=== PATIENT | female | born 1945 | race Caucasian/White ===

== ENCOUNTER 2021-09-28 08:41 | Day surgery (SDC) | payer MEDICARE, SELFPAY ==
[2021-09-21 10:52] VITALS: BMI 27.7
[2021-09-21 11:06] VITALS: BMI 27.7
--- NOTE | 2021-09-27 12:06 | HO.ANESPROP2 ---
Documented by User: Roz Aldana NP 09/27/21 12:07 HPI - Anesthesia Eval Consult details Narrative: 76yo F for Colonoscopy PMFSH Past Medical History Medical History Anxiety GERD (gastroesophageal reflux disease) Hiatal hernia History of electroconvulsive therapy HTN (hypertension) IBS (irritable bowel syndrome) Poor historian Rectal bleeding Surgical History Surgical History Hx of colonoscopy Hx of dilation and curettage Hx of hemorrhoidectomy Hx of unilateral oophorectomy Social History Social History Patient Tobacco Use Status: Former Tobacco user Quit Date: years ago Use of substances other than those prescribed or required for medical reasons: No Are you DNR?: No Advance Directives: No Advance Directives Information Provided: Yes Advance Directives on File: No Meds Allergies Allergy/AdvReac Type Severity Reaction Status Date / Time Codeine Allergy Unknown vomiting Uncoded 01/22/13 00:00 Demerol Allergy Unknown vomiting Uncoded 01/22/13 00:00 OPIATES Allergy Unknown Unknown Uncoded 09/21/21 11:05 percocet Allergy Unknown GI upset Uncoded 01/22/13 00:00 Home Medications Medication Instructions Recorded Confirmed Last Taken Type atenolol 25 mg tablet 12.5 mg PO DAILY 09/21/21 09/21/21 Unknown History atorvastatin 20 mg tablet 20 mg PO BEDTIME 09/21/21 09/21/21 Unknown History buspirone 30 mg tablet 30 mg PO BID 09/21/21 09/21/21 Unknown History cholecalciferol (vitamin D3) 25 25 mcg PO DAILY 09/21/21 09/21/21 Unknown History mcg (1,000 unit) capsule (Vitamin D3) dexlansoprazole 60 mg 60 mg PO DAILY 09/21/21 09/21/21 Unknown History capsule,biphase delayed release (Dexilant) docusate sodium 100 mg capsule 100 mg PO DAILY 09/21/21 09/21/21 Unknown History (Colace) duloxetine 30 mg capsule,delayed 30 mg PO BEDTIME 09/21/21 09/21/21 Unknown History release (Cymbalta) duloxetine 60 mg capsule,delayed 60 mg PO DAILY@0730 09/21/21 09/21/21 Unknown History release (Cymbalta) levothyroxine 50 mcg capsule 50 mcg PO DAILY 09/21/21 09/21/21 Unknown History mirtazapine 30 mg tablet (Remeron) 30 mg PO BEDTIME 09/21/21 09/21/21 Unknown History quetiapine 25 mg tablet (Seroquel) 25 mg PO BEDTIME 09/21/21 09/21/21 Unknown History Exam Exam Date and Time: September 27, 2021 1206 Height,Weight and Vital Signs: Height 5 ft 6 in Weight 78.018 kg Assessment and Plan Assessment Anesthesia Assessment: Chart Reviewed Documented by User: Brook Rushing MD 09/28/21 10:30 [facility] Past Medical History Medical History Anxiety GERD (gastroesophageal reflux disease) Hiatal hernia History of electroconvulsive therapy HTN (hypertension) IBS (irritable bowel syndrome) Poor historian Rectal bleeding Surgical History Surgical History Hx of colonoscopy Hx of dilation and curettage Hx of hemorrhoidectomy Hx of unilateral oophorectomy History of Problems with Anesthesia: No Social History Social History Patient Tobacco Use Status: Former Tobacco user Quit Date: years ago Use of substances other than those prescribed or required for medical reasons: No Are you DNR?: No Advance Directives: No Advance Directives Information Provided: Yes Advance Directives on File: No Meds Allergies Allergy/AdvReac Type Severity Reaction Status Date / Time Codeine Allergy Unknown vomiting Uncoded 01/22/13 00:00 Demerol Allergy Unknown vomiting Uncoded 01/22/13 00:00 OPIATES Allergy Unknown Unknown Uncoded 09/21/21 11:05 percocet Allergy Unknown GI upset Uncoded 01/22/13 00:00 Home Medications Medication Instructions Recorded Confirmed Last Taken Type atenolol 25 mg tablet 12.5 mg PO DAILY 09/21/21 09/21/21 Unknown History atorvastatin 20 mg tablet 20 mg PO BEDTIME 09/21/21 09/21/21 Unknown History buspirone 30 mg tablet 30 mg PO BID 09/21/21 09/21/21 Unknown History cholecalciferol (vitamin D3) 25 25 mcg PO DAILY 09/21/21 09/21/21 Unknown History mcg (1,000 unit) capsule (Vitamin D3) dexlansoprazole 60 mg 60 mg PO DAILY 09/21/21 09/21/21 Unknown History capsule,biphase delayed release (Dexilant) docusate sodium 100 mg capsule 100 mg PO DAILY 09/21/21 09/21/21 Unknown History (Colace) duloxetine 30 mg capsule,delayed 30 mg PO BEDTIME 09/21/21 09/21/21 Unknown History release (Cymbalta) duloxetine 60 mg capsule,delayed 60 mg PO DAILY@0730 09/21/21 09/21/21 Unknown History release (Cymbalta) levothyroxine 50 mcg capsule 50 mcg PO DAILY 09/21/21 09/21/21 Unknown History mirtazapine 30 mg tablet (Remeron) 30 mg PO BEDTIME 09/21/21 09/21/21 Unknown History quetiapine 25 mg tablet (Seroquel) 25 mg PO BEDTIME 09/21/21 09/21/21 Unknown History Exam Airway Mallampati Class: II (Edentulous upper) TM Dist: >3cm Neck ROM: Full Denture: Upper Partial: Lower Loose/Missing/Broken Teeth: Yes, Upper and Lower Heart: RRR Lungs: CTA Assessment and Plan Assessment Anesthesia Assessment: Anesthesia Plan Discussed Final Anesthetic Review History of Problems with Anesthesia: No NPO: Yes ASA Class: II Final Preanesthetic Review: Meds/Allgs Chart Reviewed, Consent Obtained/Reviewed and Anes Risks/Benef Reviewed Patient Risk: Low Procedure Risk: Low Anesthetic Plan Anesthetic Plan: MAC: Disposition: Standard PACU
[2021-09-28 09:29] VITALS: BP 166/72; PULSE 67; RESP 18; TEMP 36.1; O2SAT 97
[2021-09-28] MEDS: Lactated Ringers 1,000 ML 100 ML IVCONT (09:39)
[2021-09-28] MEDS: Sodium Phosphate,Mono-Dibasic 133 ML ENEMA PR (09:53)
[2021-09-28 11:50] VITALS: BP 110/47; PULSE 58; RESP 18; TEMP 36.4; O2SAT 100
--- NOTE | 2021-09-28 11:54 | P.BOP_ITS ---
Brief Operative Note Date of Service: 09/28/21 Pre-op diagnosis: Rectal bleeding Post-op diagnosis: other (Colon polyps) Procedure: Colonoscopy to the cecum with hot snare polypectomy x 2 and placement of a Resolution clip on the cecal polypectomy site. Surgeon: Ortiz Heath Anesthesia: MAC Was an Instructional Materials Director used for this Procedure?: No Estimated blood loss (mL): 2.0 Pathology: other (A. Cecal polyp B. Ascending colon polyp) Condition: stable Disposition: PACU
[2021-09-28 11:55] VITALS: BP 111/48; PULSE 54; RESP 18; O2SAT 100
[2021-09-28 12:00] VITALS: BP 105/53; PULSE 62; RESP 18; O2SAT 98
[2021-09-28 12:15] VITALS: BP 165/67; PULSE 59; RESP 16; TEMP 36.1; O2SAT 98
--- NOTE | 2021-09-28 13:36 | OP_ITS ---
SURGEON: Ortiz Heath MD INDICATIONS: The patient presents for evaluation of intermittent hematochezia. Full consent has been obtained from her for this, including risks of bleeding and perforation. PREOPERATIVE DIAGNOSIS: Hematochezia. POSTOPERATIVE DIAGNOSIS: PROCEDURE PERFORMED: Colonoscopy to the cecum with snare polypectomy and placement of a resolution clip on the cecal polypectomy site. ESTIMATED BLOOD LOSS: COMPLICATIONS: ANESTHESIA: Monitored anesthesia care. ASSISTANTS: SPECIMENS: POSTOPERATIVE DIAGNOSES: Hematochezia, colon polyps, diverticulosis, and internal hemorrhoids. DESCRIPTION OF PROCEDURE: The patient was placed in the left lateral decubitus position. The digital rectal exam revealed some small hemorrhoidal tissue. The Olympus video pediatric colonoscope was entered into the rectum and advanced to the cecum with the assistance of abdominal wall pressure. Once in the cecum, I did identify cecal pouch with appendiceal orifice. There was transillumination of light deep in the right lower quadrant. The entire cecum was well visualized. In the cecum, was an approximately 12 to 15 mm raised and grossly adenomatous polyp, which was removed by hot snare polypectomy in piecemeal fashion with pieces recovered by suction. Post polypectomy, there did not appear to be any residual polyp nor bleeding. A single clip was applied with good deployment and good hemostasis. The remainder of the cecum appeared normal. The scope was then slowly withdrawn assessing all mucosal surfaces carefully. Preparation was excellent. In the ascending colon, a flat approximately 6 to 8 mm polyp, which was removed by hot snare polypectomy and recovered by suction. The polypectomy site appeared clean, without any sign of residual polyp nor bleeding. I did not visualize any other polyps, colitis, nor angiodysplasia. There was a moderate amount of sigmoid diverticulosis. In the rectum, scope was retroflexed visualizing internal hemorrhoids, but no other pathology. The rectal mucosa appeared normal. Scope was straightened out and withdrawn from the patient. She tolerated the procedure well and was returned to recovery area in stable condition. IMPRESSION: 1. Colon polyps, status post hot snare polypectomy and placement of a single resolution clip on the cecal polypectomy site. 2. Diverticulosis. 3. Internal hemorrhoids. PLAN: The results of the pathology will be checked. Given these findings and her age, I do not think she will need any further screening colonoscopies. She will otherwise see me again on a p.r.n. basis. She was advised not to use any aspirin nor NSAIDs for 1 week. This has been discussed with her . MD ROSANA Taveras/PAMELA / [phone]
== END 2021-09-28 12:59 | disposition home or self-care (01) ==
PROVIDERS: PCP Internal Medicine; Visit Provider Internal Medicine
PROC: 0DJD8ZZ Inspection of Lower Intestinal Tract, Via Natural or Artificial Opening Endoscopic (ICD-10-PCS; CPT 45378; principal; 2021-09-28 10:10)
DX: K62.5 Hemorrhage of anus and rectum (principal); D12.0 Benign neoplasm of cecum; D12.2 Benign neoplasm of ascending colon; K57.30 Diverticulosis of large intestine without perforation or abscess without bleeding; K64.8 Other hemorrhoids; K58.9 Irritable bowel syndrome, unspecified; K21.9 Gastro-esophageal reflux disease without esophagitis; I10 Essential (primary) hypertension; F32.9 Major depressive disorder, single episode, unspecified; Z79.899 Other long term (current) drug therapy
CPT/HCPCS: 45385; 88305

== ENCOUNTER 2023-07-18 14:31 | Outpatient (AMB) | payer MEDICARE, SELFPAY ==
--- NOTE | 2023-07-18 14:45 | A.OFFVIS_ITS ---
Intake Vital Signs 07/18/23 14:50 Weight 165 lb Intake Visit Reasons: Hemorrhoids Intake Note: This patient presents for an assessment for hemorrhoids. Patient c/o; reports pressure and heaviness, I feel like there is a rock , Hx of IBS, reports using Metamucil because she was experiencing fecal incontinence. Transition Specialist Required: No Accompanied by: Daughter Allergies Sulfa (Sulfonamide Antibiotics) Allergy (Verified 07/18/23 14:51) Unknown sulfamethoxazole [From Bactrim] Allergy (Verified 07/18/23 14:51) Unknown trimethoprim [From Bactrim] Allergy (Verified 07/18/23 14:51) Unknown Codeine Allergy (Unknown, Uncoded 01/22/13 00:00) vomiting Demerol Allergy (Unknown, Uncoded 01/22/13 00:00) vomiting OPIATES Allergy (Unknown, Uncoded 09/21/21 11:05) Unknown percocet Allergy (Unknown, Uncoded 01/22/13 00:00) GI upset Medication List - Last Reviewed 07/18/23 by RAUL Marie atenolol 12.5 mg PO DAILY atorvastatin 20 mg PO BEDTIME buspirone 30 mg PO BID cholecalciferol (vitamin D3) (Vitamin D3) 25 mcg PO DAILY dexlansoprazole (Dexilant) 60 mg PO DAILY docusate sodium (Colace) 100 mg PO DAILY duloxetine (Cymbalta) 60 mg PO DAILY@0730 duloxetine (Cymbalta) 30 mg PO BEDTIME levothyroxine 50 mcg PO DAILY losartan 50 mg PO DAILY mirtazapine (Remeron) 30 mg PO BEDTIME psyllium husk (Metamucil) 1 tbsp PO DAILY quetiapine (Seroquel) 25 mg PO BEDTIME HPI Hemorrhoids HPI Details [age] year old female referred for hemorrhoids. She actually describes a sensation of having a ?rock? in her anus. She says that she has had this for about 6 months now. She denies significant pain. She says that she has no bleeding. She just states that was of this discomfort of this sensation, she is unable to stay in a standing position or walk for long periods of time as this gets worse She denies constipation although she does have a history of IBS in the past. She her last colonoscopy was in 2020 and at that time, she was noted to have cecal polyp and internal hemorrhoids. She really does not feel an actual lump outside her anus. [facility] Medical History (Updated 07/18/23 @ 15:29 by Jimbo Mayo MD) Anxiety GERD (gastroesophageal reflux disease) Hiatal hernia History of electroconvulsive therapy HTN (hypertension) IBS (irritable bowel syndrome) Internal hemorrhoids with complication Poor historian Rectal bleeding Surgical History Hx of colonoscopy Hx of dilation and curettage Hx of hemorrhoidectomy Hx of unilateral oophorectomy Social History Patient Tobacco Use Status: Former Tobacco user Quit Date: years ago Review of Systems Const Denies chills and Denies fever(s) Card Denies chest pain, Denies dyspnea and Denies dyspnea on exertion Resp Denies cough, Denies dyspnea and Denies dyspnea on exertion GI Denies hematochezia and Denies change in bowel habits Denies hematuria Musc Denies back pain and Denies limited range of motion Neuro Denies focal weakness and Denies convulsions Psych Denies depression and Denies mood swings Physical Exam Const General: comfortable and no acute distress Orientation/consciousness: patient oriented x3 Neck Neck: Yes no lymphadenopathy Resp Auscultation: clear to auscultation bilaterally Cardio Rhythm: regular rhythm GI Other: Small external hemorrhoids on rectal exam, anoscopy as described Palpation (GI): Soft to palpation, nontender and no guarding Neuro General: patient oriented x3 Office Procedures Anoscopy She was in elizabeth-knife position. The anoscope was gently inserted. Full examination of the anal canal was done. She did have 1 relatively large internal hemorrhoid on the left side. She had other smaller hemorrhoidal columns internally. There were no other lesions. There was no induration on digital exam. There were no ulcers are no fissures. There was no bleeding. [id number] Assessment & Plan Assessment & Plan (1) Internal hemorrhoids with complication: Code(s): K64.8 - Other hemorrhoids Plan: She has had this sensation of a ?rock? inside her anus for about 6 months now. Anoscopic exam reveals a large internal hemorrhoid on the left side I explained to her that we can do rubber band ligation to this internal hemorrhoid and hopefully this will help with her discomfort. I explained to her the technique of this procedure. She understands and we will schedule her for a visit to do rubber band ligation here in the office In the meantime, she states that been using hemorrhoids that seemed to help with her symptoms so I will refill her Anucort. Her daughter was with her during the visit. Medications: New hydrocortisone acetate (Anucort-HC) 25 mg NV BID 24 ea 0RF Coding Level of Care Code New Pt Level 3 (59824) Diagnoses Internal hemorrhoids with complication K64.8 CPT Codes Details - CPT: 31710-[id number] ([id number])
== END 2023-07-18 15:19 | disposition home or self-care (01) ==
PROVIDERS: PCP Internal Medicine; Referring Provider Internal Medicine; Visit Provider Surgery
DX: K64.8 Other hemorrhoids (principal)
CPT/HCPCS: 46600; 99203

== ENCOUNTER → 2023-07-18 14:31 | Outpatient (BNVA) | payer MEDICARE, SELFPAY | PROVIDERS: PCP Internal Medicine; Referring Provider Internal Medicine; Visit Provider Surgery | DX: K64.8 Other hemorrhoids (principal) | CPT/HCPCS: 46600; 99202 ==

== ENCOUNTER 2023-08-01 13:19 | Outpatient (AMB) | payer MEDICARE, SELFPAY ==
--- NOTE | 2023-08-01 13:20 | A.OFFVIS_ITS ---
Intake Vital Signs 08/01/23 13:28 Weight 164 lb BP 139/63 Blood Pressure Location Rt brachial Position Sitting Pulse 84 Intake Visit Reasons: Rubberband ligation Intake Note: This patient presents for in-office procedure for rubberband ligation. Patient c/o; reports no changes. Drawing In Machine Tender Helper Required: No Accompanied by: Daughter Allergies Sulfa (Sulfonamide Antibiotics) Allergy (Verified 08/01/23 13:29) Unknown sulfamethoxazole [From Bactrim] Allergy (Verified 08/01/23 13:29) Unknown trimethoprim [From Bactrim] Allergy (Verified 08/01/23 13:29) Unknown Codeine Allergy (Unknown, Uncoded 08/01/23 13:29) vomiting Demerol Allergy (Unknown, Uncoded 08/01/23 13:29) vomiting OPIATES Allergy (Unknown, Uncoded 08/01/23 13:29) Unknown percocet Allergy (Unknown, Uncoded 08/01/23 13:29) GI upset HPI Rubberband ligation HPI Details She is here for rubber band ligation. [facility] Medical History Internal hemorrhoids with complication Poor historian Rectal bleeding HTN (hypertension) Hiatal hernia GERD (gastroesophageal reflux disease) Anxiety IBS (irritable bowel syndrome) History of electroconvulsive therapy Surgical History History of surgical procedure (~08/01/23) Hx of colonoscopy Hx of unilateral oophorectomy Hx of dilation and curettage Hx of hemorrhoidectomy Social History Patient Tobacco Use Status: Former Tobacco user Quit Date: years ago Physical Exam Vital Signs: Last Vital Signs Pulse 84 08/01/23 13:28 BP 139/63 08/01/23 13:28 Office Procedures Hemorrhoid She was in elizabeth-knife position. The anoscope was gently inserted. There was this internal hemorrhoid on the left side posteriorly. This was grasped with the hemorrhoidal grasper. The rubber band ligated her was applied at the base of the internal hemorrhoidal column. She tolerated procedure well. There were no immediate complications I will see her again in the office in 2 weeks. Assessment & Plan Assessment & Plan (1) Internal hemorrhoids with complication: Code(s): K64.8 - Other hemorrhoids Plan: She tolerated rubber band ligation well. I will see her again in the office in about 2 weeks. Coding Level of Care Code Procedure Only Diagnoses Internal hemorrhoids with complication K64.8
[2023-08-01 13:28] VITALS: BP 139/63; PULSE 84
== END 2023-08-01 13:41 | disposition home or self-care (01) ==
PROVIDERS: PCP Internal Medicine; Visit Provider Surgery
DX: K64.8 Other hemorrhoids (principal)
CPT/HCPCS: 46221

== ENCOUNTER → 2023-08-01 13:19 | Outpatient (BNVA) | payer MEDICARE, SELFPAY | PROVIDERS: PCP Internal Medicine; Visit Provider Surgery | DX: K64.8 Other hemorrhoids (principal) | CPT/HCPCS: 46221 ==

== ENCOUNTER 2023-08-20 12:52 | Outpatient (AMB) | payer MEDICARE, SELFPAY ==
--- NOTE | 2023-08-20 12:53 | MHC.OFFVIS ---
Intake Vital Signs 08/20/23 13:00 Weight 166 lb BP 134/60 Blood Pressure Location Rt brachial Position Sitting Pulse 88 Intake Visit Reasons: s/p rubberband ligation, follow up Intake Note: This patient presents for a follow-up assessment status post hemorrhoidal banding. Patient's daughter c/o; it helped but not enough . Tape Transferrer Required: No Accompanied by: Daughter Allergies Sulfa (Sulfonamide Antibiotics) Allergy (Verified 08/20/23 12:54) Unknown sulfamethoxazole [From Bactrim] Allergy (Verified 08/20/23 12:54) Unknown trimethoprim [From Bactrim] Allergy (Verified 08/20/23 12:54) Unknown Codeine Allergy (Unknown, Uncoded 08/20/23 12:54) vomiting Demerol Allergy (Unknown, Uncoded 08/20/23 12:54) vomiting OPIATES Allergy (Unknown, Uncoded 08/20/23 12:54) Unknown percocet Allergy (Unknown, Uncoded 08/20/23 12:54) GI upset HPI s/p rubberband ligation, follow up HPI Details She had undergone rubber band ligation of an internal hemorrhoid in the office about 3 weeks ago. She tolerated procedure well. She says she still has this sensation of being at ?lump? in her anus. She says that this seems to be worse when she has been standing for prolonged period of time. She therefore says she had not gone to [facility] recently because of this. She denies seeing blood per rectum. [facility] Medical History (Updated 08/20/23 @ 13:18 by Jimbo Mayo MD) Internal and external hemorrhoids without complication Internal hemorrhoids with complication Poor historian Rectal bleeding HTN (hypertension) Hiatal hernia GERD (gastroesophageal reflux disease) Anxiety IBS (irritable bowel syndrome) History of electroconvulsive therapy Surgical History History of surgical procedure (~08/01/23) Hx of colonoscopy Hx of unilateral oophorectomy Hx of dilation and curettage Hx of hemorrhoidectomy Social History Patient Tobacco Use Status: Former Tobacco user Quit Date: years ago Review of Systems Const Denies chills and Denies fever(s) Card Denies chest pain, Denies dyspnea and Denies dyspnea on exertion Resp Denies cough, Denies dyspnea and Denies dyspnea on exertion GI Denies hematochezia and Denies change in bowel habits Denies hematuria Musc Denies back pain and Denies limited range of motion Neuro Denies focal weakness and Denies convulsions Psych Denies depression and Denies mood swings Physical Exam Vital Signs: Last Vital Signs Pulse 88 08/20/23 13:00 BP 134/60 08/20/23 13:00 GI Other: Rectal exam shows some irritation on the perianal skin Office Procedures Anoscopy She was placed in elizabeth-knife position. The anoscope was gently inserted. A full examination of the entire anal canal was done. There was note of external hemorrhoidal column on the left anterior. There was a small internal hemorrhoidal column on the right. There were no other lesions. There was no fissure or induration. [id number] Assessment & Plan Assessment & Plan (1) Internal and external hemorrhoids without complication: Code(s): K64.4 - Residual hemorrhoidal skin tags; K64.8 - Other hemorrhoids Plan: Current exam does show an external hemorrhoidal column on the left side although this is not bulky. She has smaller internal hemorrhoids as well She continues to have some sensation of a lump inside her anus even after rubber banding of 2 internal hemorrhoids. According to her daughter, she has had hemorrhoid issues for about over 50 years now. I do not see any large hemorrhoidal column I will start her on steroid suppositories again. I will prescribe her Calmoseptine. I will see her again in the office in about 3 weeks to see how she is doing. There is a chance that we may repeat rubber banding of some internal hemorrhoids. Coding Level of Care Code Est Pt Level 3 (42789) Diagnoses Internal and external hemorrhoids without complication K64.4; K64.8 CPT Codes Details - CPT: 59697-[id number] ([id number])
[2023-08-20 13:00] VITALS: BP 134/60; PULSE 88
== END 2023-08-20 13:21 | disposition home or self-care (01) ==
PROVIDERS: PCP Internal Medicine; Visit Provider Surgery
DX: K64.4 Residual hemorrhoidal skin tags (principal); K64.8 Other hemorrhoids
CPT/HCPCS: 46600; 99213

== ENCOUNTER → 2023-08-20 12:52 | Outpatient (BNVA) | payer MEDICARE, SELFPAY | PROVIDERS: PCP Internal Medicine; Visit Provider Surgery | DX: K64.4 Residual hemorrhoidal skin tags (principal); K64.8 Other hemorrhoids | CPT/HCPCS: 46600; 99212 ==

== ENCOUNTER 2023-09-10 13:37 | Outpatient (REF) | payer MEDICARE, SELFPAY ==
[2023-09-10 15:09] LABS: Blood Urea Nitrogen 16 mg/dL (9-16); Estimated Glomerular Filt Rate > 60
== END 2023-09-10 13:38 | disposition home or self-care (01) ==
LOC: HO.LAB 13:37
PROVIDERS: PCP Internal Medicine; Visit Provider Surgery
DX: K64.8 Other hemorrhoids (principal)
CPT/HCPCS: 36415; 46600; 82565; 84520; 99212

== ENCOUNTER 2023-09-10 13:37 | Outpatient (AMB) | payer MEDICARE, SELFPAY ==
--- NOTE | 2023-09-10 13:40 | A.OFFVIS_ITS ---
Intake Vital Signs 09/10/23 13:47 Weight 171 lb BP 130/60 Blood Pressure Location Rt brachial Position Sitting Pulse 92 Intake Visit Reasons: Internal and external hemorrhoids, 3 wk follow up Intake Note: This patient presents for a three week follow-up assessment for internal and external hemorrhoids. Patient c/o; reports no changes. Dental Biller Required: No Accompanied by: Daughter Allergies Sulfa (Sulfonamide Antibiotics) Allergy (Verified 09/10/23 13:47) Unknown sulfamethoxazole [From Bactrim] Allergy (Verified 09/10/23 13:47) Unknown trimethoprim [From Bactrim] Allergy (Verified 09/10/23 13:47) Unknown Codeine Allergy (Unknown, Uncoded 09/10/23 13:47) vomiting Demerol Allergy (Unknown, Uncoded 09/10/23 13:47) vomiting OPIATES Allergy (Unknown, Uncoded 09/10/23 13:47) Unknown percocet Allergy (Unknown, Uncoded 09/10/23 13:47) GI upset HPI Internal and external hemorrhoids, 3 wk follow up HPI Details She is here for follow-up for her hemorrhoid issues. She had undergone rubber band ligation recently. She continued to have some sensation swollen hemorrhoids within anal canal so I started on steroid suppositories. She does state that the seemed to help a lot. She however says that she wakes up with us feeling that she has a ?rock? in her anus. She says that because of this, she is hesitant about leaving the house. She denies bleeding per rectum. [facility] Medical History (Updated 09/10/23 @ 14:06 by Jimbo Mayo MD) Mass of anus Internal and external hemorrhoids without complication Internal hemorrhoids with complication Poor historian Rectal bleeding HTN (hypertension) Hiatal hernia GERD (gastroesophageal reflux disease) Anxiety IBS (irritable bowel syndrome) History of electroconvulsive therapy Surgical History History of surgical procedure (~08/01/23) Hx of colonoscopy Hx of unilateral oophorectomy Hx of dilation and curettage Hx of hemorrhoidectomy Social History Patient Tobacco Use Status: Former Tobacco user Quit Date: years ago Review of Systems Const Denies chills and Denies fever(s) Card Denies chest pain Resp Denies cough GI Denies abdominal pain Denies difficulty voiding Physical Exam Const General: comfortable and no acute distress Resp Effort & Inspection: normal respiratory effort Cardio Rate: regular rate GI Other: Rectal exam shows non bulky external hemorrhoids, anoscopy done Palpation (GI): Soft to palpation, not firm and nontender Office Procedures Anoscopy She was in elizabeth-knife position. The anoscope was gently inserted. A full examination of the anal canal was done. She had small internal hemorrhoids do not appear to be prolapsing. There were no lesions. There was no induration on digital exam [id number] Assessment & Plan Assessment & Plan (1) Mass of anus: Code(s): K62.89 - Other specified diseases of anus and rectum Plan: She does state that she feels much better with the steroid suppositories. However she continues to have this sensation of a ?rock? in her anus in the morning. Current exam does not reveal any mass in the anus itself. I am going to order for a pelvic CT scan to rule out any extraluminal mass in the area. She seems to be bothered by this ?rock?. I will see her in the office thereafter. (2) Internal hemorrhoids with complication: Code(s): K64.8 - Other hemorrhoids Orders: Orders Creatinine Today K62.89 - Other specified diseases of anus and rectum CT pelvis w IV con Today K62.89 - Other specified diseases of anus and rectum Blood Urea Nitrogen Today K62.89 - Other specified diseases of anus and rectum Coding Level of Care Code Est Pt Level 3 (10789) Diagnoses Mass of anus K62.89 Internal hemorrhoids with complication K64.8 CPT Codes Details - CPT: 77589-[id number] ([id number])
[2023-09-10 13:47] VITALS: BP 130/60; PULSE 92
== END 2023-09-10 14:16 | disposition home or self-care (01) ==
PROVIDERS: PCP Internal Medicine; Visit Provider Surgery
DX: K62.89 Other specified diseases of anus and rectum (principal); K64.8 Other hemorrhoids
CPT/HCPCS: 46600; 99213

== ENCOUNTER 2023-10-25 10:24 | Outpatient (REF) | payer MEDICARE, SELFPAY ==
--- NOTE | ~2023-10-25 | CT_ITS ---
EXAMINATION: CT PELVIS WITH CONTRAST CLINICAL INFORMATION: 50 mL of anus and rectum COMPARISON: None available. TECHNIQUE: Helical scanning was performed with submillimeter collimation through the pelvis with the use of oral contrast and during bolus intravenous injection of 85 mL of Omnipaque 350 intravenous contrast. Sagittal and coronal multiplanar 2-D reconstructions were obtained. This CT examination was performed using dose optimization techniques as appropriate, variously including the following: *Automated exposure control *Adjustment of mA and/or kV according to patient size (this includes techniques or standardized protocols for targeted exams where dose is matched to indication/reason for exam; i.e. extremities or head) *Use of iterative reconstruction technique DLP: 696.43 mGy-cm FINDINGS: URINARY BLADDER: Urinary bladder fills normally with urine. BOWELS: There is no abnormal dilatation of large and small bowel loops. Normal appendix is seen projecting posterior to the cecum. GENITAL ORGANS: No adnexal mass lesion could be seen. The uterus is retroverted, containing at least one enhancing exophytic mass lesion protruding from left lateral uterine body, measuring 5.1 cm in AP diameter, 4.3 cm in width, 4.0 cm in vertical height. LYMPH NODES: No abnormally enlarged iliac or inguinal lymph nodes are seen. PERITONEUM: No inflammatory changes, ascites or free peritoneal air are found in the pelvis. Small umbilical hernia containing mesenteric fat is seen. BONES: Multiple large subcortical cystic lesions are seen in the right femoral head. Prominent right femoral head ring osteophyte formation is seen. No fracture or dislocation. No focal bone lesion diagnostic of metastatic disease could be seen in the pelvis. CT/CT pelvis w IV con IMPRESSION: 1. There is at least one exophytic enhancing mass lesion protruding from the left lateral uterine body. 2. Small umbilical hernia containing mesenteric fat. 3. Prominent right hip osteoarthritis is present.
[2023-10-25] MEDS: iohexoL 350 MG/ML 100 ML INFUS..BTL IV (11:25)
[2023-10-29 09:05] LABS: Creatinine POC 0.5 mg/dL (0.5-1.4); GFR POC > 60
== END 2023-10-25 10:25 | disposition home or self-care (01) ==
LOC: HO.CT 10:24
PROVIDERS: PCP Internal Medicine; Visit Provider Surgery
DX: K62.89 Other specified diseases of anus and rectum (principal)
CPT/HCPCS: 72193; 82565; Q9967

== ENCOUNTER 2023-11-05 11:22 | Outpatient (AMB) | payer MEDICARE, SELFPAY ==
--- NOTE | 2023-11-05 11:23 | A.OFFVIS_ITS ---
Intake Vital Signs 11/05/23 11:29 Weight 177 lb Intake Visit Reasons: Ct-Scan follow-up Intake Note: This patient presents for an assessment for an umbilical hernia. Patient c/o; reports no changes. 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 Accompanied by: Self / Same As Patient Allergies Sulfa (Sulfonamide Antibiotics) Allergy (Verified 11/05/23 11:29) Unknown sulfamethoxazole [From Bactrim] Allergy (Verified 11/05/23 11:29) Unknown trimethoprim [From Bactrim] Allergy (Verified 11/05/23 11:29) Unknown Codeine Allergy (Unknown, Uncoded 11/05/23 11:29) vomiting Demerol Allergy (Unknown, Uncoded 11/05/23 11:29) vomiting OPIATES Allergy (Unknown, Uncoded 11/05/23 11:29) Unknown percocet Allergy (Unknown, Uncoded 11/05/23 11:29) GI upset HPI Ct-Scan follow-up HPI Details I had sent her for a CT scan of the pelvis in view of what she described as discomfort around her rectum. She had described this as like a rock? near her anus. I had done anoscopy on her as well as digital exams and this did not reveal any mass around her anus or rectum. Interestingly, this sensation seemed to have resolved. She denies any problems with bowel movements. She denies any abdominal pain [facility] Medical History Uterine mass Mass of anus Internal and external hemorrhoids without complication Internal hemorrhoids with complication Poor historian Rectal bleeding HTN (hypertension) Hiatal hernia GERD (gastroesophageal reflux disease) Anxiety IBS (irritable bowel syndrome) History of electroconvulsive therapy Surgical History History of surgical procedure (~08/01/23) Hx of colonoscopy Hx of unilateral oophorectomy Hx of dilation and curettage Hx of hemorrhoidectomy Social History Patient Tobacco Use Status: Former Tobacco user Quit Date: years ago Review of Systems Const Denies chills and Denies fever(s) Card Denies chest pain, Denies dyspnea and Denies dyspnea on exertion Resp Denies cough, Denies dyspnea and Denies dyspnea on exertion GI Denies hematochezia and Denies change in bowel habits Denies hematuria Musc Denies back pain and Denies limited range of motion Neuro Denies focal weakness and Denies convulsions Psych Denies depression and Denies mood swings Physical Exam Const General: comfortable and no acute distress Resp Effort & Inspection: normal respiratory effort GI Palpation (GI): Soft to palpation, not firm and nontender Assessment & Plan Assessment & Plan (1) Mass of anus: Code(s): K62.89 - Other specified diseases of anus and rectum Plan: Aside from her hemorrhoids, I did not feel any mass around her anus. I had sent her for CT scan because of her sensation of a ?rock? in her anus. This did not reveal anything around the anus or rectum. There was note of a 5.1 cm mass uterus did is likely a fibroid. I am going to send her for referral to the Gyne service She can otherwise follow up with us on a p.r.n. basis. She is comfortable with the plan. She had a small fat containing umbilical hernia which is asymptomatic so I instructed her to monitor this closely. 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
== END 2023-11-05 11:42 | disposition home or self-care (01) ==
PROVIDERS: PCP Internal Medicine; Visit Provider Surgery
DX: K62.89 Other specified diseases of anus and rectum (principal); N85.8 Other specified noninflammatory disorders of uterus
CPT/HCPCS: 99213

== ENCOUNTER → 2023-11-05 11:22 | Outpatient (BNVA) | payer MEDICARE, SELFPAY | PROVIDERS: PCP Internal Medicine; Visit Provider Surgery | DX: K62.89 Other specified diseases of anus and rectum (principal); N85.8 Other specified noninflammatory disorders of uterus | CPT/HCPCS: 99212 ==

== ENCOUNTER 2024-01-21 09:52 | Outpatient (AMB) | payer MEDICARE, SELFPAY ==
[2024-01-21 10:33] VITALS: BP 142/72; BMI 29.2
--- NOTE | 2024-01-21 10:33 | A.OFFVIS_ITS ---
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 Semiautomatic Present (Aidyn) Accompanied by: Child No Financial Resp Allergies Sulfa (Sulfonamide Antibiotics) Allergy (Verified 01/21/24 10:35) Unknown sulfamethoxazole [From Bactrim] Allergy (Verified 01/21/24 10:35) Unknown trimethoprim [From Bactrim] Allergy (Verified 01/21/24 10:35) Unknown Codeine Allergy (Unknown, Uncoded 01/21/24 10:35) vomiting Demerol Allergy (Unknown, Uncoded 01/21/24 10:35) vomiting OPIATES Allergy (Unknown, Uncoded 01/21/24 10:35) Unknown percocet Allergy (Unknown, Uncoded 01/21/24 10:35) GI upset Is last menstrual period known: No Post menopausal: Yes Patient : No HPI HPI Comments History of Present Illness Details Presenting referred from Dr. Mayo . The patient has been complaining over the last 6 months of rectal pressure, no vaginal bleeding, no pelvic pressure or any other concerns. CT scan done in 11/10, pelvic portion showed the following: GENITAL ORGANS: No adnexal mass lesion could be seen. The uterus is retroverted, containing at least one enhancing exophytic mass lesion protruding from left lateral uterine body, measuring 5.1 cm in AP diameter, 4.3 cm in width, 4.0 cm in vertical height. Review of the patient's record showed an ultrasound in November of 2002 showing a uterine myoma measuring 7.3 x 6.7 x 5.1 and a pelvic MRI in showed a uterine myoma measuring 5.1 x 5.3 x 4.5 cm [facility] Medical History Uterine mass Mass of anus Internal and external hemorrhoids without complication Internal hemorrhoids with complication Poor historian Rectal bleeding HTN (hypertension) Hiatal hernia GERD (gastroesophageal reflux disease) Anxiety IBS (irritable bowel syndrome) History of electroconvulsive therapy Surgical History History of surgical procedure (~08/01/23) Hx of colonoscopy Hx of unilateral oophorectomy Hx of dilation and curettage Hx of hemorrhoidectomy Social History Patient Tobacco Use Status: Former Tobacco user Quit Date: years ago Patient : No Female Reproductive History Menstrual control method: none Total pregnancies: 3 Full term: 3 Number of Living Children: 3 Date of last pap smear: 08/04/11 (negative) History of abnormal pap smear: No Date of Mammogram: 08/05/13 Review of Systems Const All systems reviewed & are unremarkable except as noted in HPI and below Physical Exam Vital Signs: Last Vital Signs BP 142/72 H 01/21/24 10:33 BMI result Body Mass Index 29.2 General: Yes no CVA tenderness External Female Exam: normal external appearance and normal appearance of the urethra Speculum Exam - Vagina: normal appearance of the vagina, normal palpation, no lesions and no masses Speculum Exam - Cervix: normal appearance of the cervix, normal palpation, no lesions, no masses and nontender Bimanual exam- vagina & uterus: normal bimanual exam, normal palpation, uterine size normal, normal palpation, uterine shape normal, No Cervical tenderness pr esent and non-tender Bimanual Exam- Adnexa, other: normal adnexae Back/Spine/Pelvis Back: no CVA tenderness Assessment & Plan Assessment & Plan (1) Uterine mass: Code(s): N85.8 - Other specified noninflammatory disorders of uterus Plan: Discussed with the patient the finding on CT scan, differential diagnosis includes myomas or other possible causes. Will order MRI of the pelvis. Instructions given the patient to schedule an MRI follow-up appointment. All questions answered, the patient verbalized understanding Orders: Orders MR pelvis wo/w con Today N85.8 - Other specified noninflammatory disorders of uterus Coding Level of Care Code New Pt Level 3 (33318) Diagnoses Uterine mass N85.8
== END 2024-01-21 11:51 | disposition home or self-care (01) ==
PROVIDERS: PCP Internal Medicine; Visit Provider Obstetrics & Gynecology
DX: N85.8 Other specified noninflammatory disorders of uterus (principal)
CPT/HCPCS: 99203

== ENCOUNTER → 2024-01-21 09:52 | Outpatient (BNVA) | payer MEDICARE, SELFPAY | PROVIDERS: PCP Internal Medicine; Visit Provider Obstetrics & Gynecology | DX: N85.8 Other specified noninflammatory disorders of uterus (principal) | CPT/HCPCS: 99202 ==

== ENCOUNTER 2024-02-16 10:03 | Inpatient (IN) | payer MEDICARE, SELFPAY ==
[2024-02-16] VITALS (13 sets, daily range): BP systolic 108–220; BP diastolic 45–120; PULSE 71–89; RESP 14–20; TEMP 35.9–36.7; O2SAT 95–99; BMI 35.4
--- NOTE | ~2024-02-16 | CT_ITS ---
EXAMINATION: CTA OF THE HEAD AND NECK CLINICAL INFORMATION: Right-sided deficits. COMPARISON: Head CT from 02/16/2024. TECHNIQUE: Test bolus sequences followed by intravenous administration 70 mL of Omnipaque 350. Helical imaging was performed in the axial plane from the mediastinum to the skull vertex. Delayed postcontrast imaging of the head was also performed. The data was processed at the space technologist's workstation for generation of MIP sequences. Three-dimensional volume rendered reformatted images were also generated at an offline 3-D workstation. Stenoses are assessed in accordance with NASCET criteria unless otherwise indicated. This CT examination was performed using dose optimization techniques as appropriate, variously including the following: *Automated exposure control *Adjustment of mA and/or kV according to patient size (this includes techniques or standardized protocols for targeted exams where dose is matched to indication/reason for exam; i.e. extremities or head) *Use of iterative reconstruction technique DLP: 1485 mGy-cm. FINDINGS: CTA neck: Mild atherosclerotic wall calcifications visible at the aortic arch and origins of the left common carotid artery and brachiocephalic trunk without stenosis. There is significant wall calcification at the origin of the left subclavian artery resulting in a severe stenosis. There is a urqycacl-hr-qqmukt stenosis at the origin of the right subclavian artery as well with wall calcifications. Mild wall calcifications visible at the left carotid bifurcation without stenosis. A beaded appearance is evident in the upper cervical left internal carotid artery without a focal dissection or significant stenosis. The right common carotid artery is normal in caliber. At the right carotid bifurcation, there is a 60% stenosis at the origin of the right internal carotid artery with moderate wall calcifications. Distally, there is a beaded appearance of the upper cervical right internal carotid artery without significant stenosis. There is an incidental fenestration of the right vertebral artery at the C2 level. The remainder of the vertebral arteries bilaterally are normal in appearance. The thyroid gland is atrophic and mildly heterogeneous in attenuation. Multilevel facet arthropathy present in the cervical spine with foraminal encroachment. The imaged portions of the lungs are clear. CTA head: The intradural vertebral arteries and basilar artery are normal. The posterior cerebral arteries are widely patent. The internal carotid arteries are of normal caliber. There is a 3 x 3 mm PCOM aneurysm protruding posterolaterally off the supraclinoid left internal carotid artery, incorporating the origin of the posterior communicating artery segment. The JHONATHAN and MCA vascular complexes bilaterally are normal. There is no abnormal parenchymal or leptomeningeal enhancement. The venous sinuses opacify normally. CT/CT angio head neck stroke IMPRESSION: Beaded appearance of the upper cervical internal carotid arteries without significant stenosis or visible dissection. Findings can be seen in the setting of fibromuscular dysplasia. Approximate 60% stenosis at the origin of the right internal carotid artery due to moderate atherosclerotic wall calcifications. Severe stenosis at the origin of the left subclavian artery due to atheromatous disease and [id number] stenosis at the origin of the right subclavian artery with surrounding wall calcifications. Suspected focal fenestration in the upper cervical right vertebral artery at the C2 level. Approximate 3 x 3 mm PCOM aneurysm protruding posterolaterally off the supraclinoid left internal carotid artery. Imaging findings reported to ROJELIO Molina at 11:10 AM on 02/16/2024.
--- NOTE | ~2024-02-16 | CT_ITS ---
EXAMINATION: CT HEAD WITHOUT CONTRAST (STROKE PROTOCOL) CLINICAL INFORMATION: Stroke protocol. Right-sided deficits. COMPARISON: None available TECHNIQUE: Contiguous axial imaging was performed from the skull base to vertex without intravenous administration of contrast. This CT examination was performed using dose optimization techniques as appropriate, variously including the following: *Automated exposure control *Adjustment of mA and/or kV according to patient size (this includes techniques or standardized protocols for targeted exams where dose is matched to indication/reason for exam; i.e. extremities or head) *Use of iterative reconstruction technique DLP: 653 mGy-cm FINDINGS: There is no evidence of acute intracranial hemorrhage or territorial infarction. No abnormal mass effect or midline shift is appreciated. Russo-white differentiation is well preserved. No extra-axial fluid collections. The ventricular system and cortical sulci are prominent, consistent with age-appropriate volume loss. There are areas of low density in the periventricular and subcortical white matter, most consistent with sequelae of microvascular ischemic change. Soft tissues and osseous structures are unremarkable. There are calcifications of the cavernous internal carotid arteries. The visualized paranasal sinuses and mastoid air cells are well aerated. CT/CT head for stroke IMPRESSION: No acute intracranial pathology. This critical result was relayed to Dr. Sierra by DWAYNE Walters at 10:26 AM. It was ascertained that the content and urgency of the report was understood at the time of direct communication.
--- NOTE | ~2024-02-16 | MR_ITS ---
EXAMINATION: MR BRAIN WITHOUT CONTRAST CLINICAL INFORMATION: Question aphasia. COMPARISON: CT on 01/20/2024. TECHNIQUE: Multiplanar, multisequence imaging of the brain was performed without contrast. FINDINGS: No diffusion abnormalities are identified to suggest an acute infarct. There is generalized brain parenchymal volume loss with commensurate mild to moderate ex vacuo dilatation of the ventricles. No mass effect or midline shift is seen. There are mild scattered white matter signal changes which may be due to chronic microangiopathy. Moderate T2 hyperintense signal changes are visible in the dario. No extra-axial fluid collections are seen. The cerebellum is normal. The gradient refocused acquisition demonstrates no pathologic magnetic susceptibility artifact to indicate underlying acute or chronic blood products. The craniovertebral junction, marrow signal, and remaining midline structures are normal. The major intracranial flow voids at the level of the [place] are preserved. A tortuous right vertebral body distorts the pontomedullary junction. The dural venous sinus flow voids are maintained. The mastoid air cells and paranasal sinuses are well aerated. MR/MR head/brain wo con IMPRESSION: No acute intracranial process. Mild chronic microangiopathy in the cerebral white matter with generalized brain parenchymal volume loss. Moderate striated signal abnormality in the central dario which may be due to chronic small vessel ischemic disease. Osmotic demyelination could have a similar imaging appearance; clinical correlation is recommended.
--- NOTE | 2024-02-16 10:07 | ECG_ITS ---
Test Reason : STROKE Blood Pressure : / mmHG Vent. Rate : 089 BPM Atrial Rate : 089 BPM P-R Int : 206 ms QRS Dur : 084 ms QT Int : 340 ms P-R-T Axes : 044 -03 061 degrees QTc Int : 413 ms Normal sinus rhythm Nonspecific ST abnormality Abnormal ECG No previous ECGs available Referred By: Brook Monterroso Electronically Signed By:Rene Reynaga
--- NOTE | 2024-02-16 10:08 | ED_ITS ---
HPI - Neuro Symptoms/Deficit General Chief Complaint: Neuro Symptoms/Deficit Stated Complaint: NOT RESPONDING VERBALLY CONFUSED Time Seen by Provider: 02/16/24 10:16 Source: family and EMS Mode of arrival: EMS History of Present Illness HPI Narrative: 78-year-old female arrives via EMS, daughter came to the house and found her mother with minimal response and has not seen her since Sunday, who was at the house but has dementia states that his told him to go to bed last night at 20:00. At this time, last known well 20:00. Patient has no history of chronic anticoagulation but is noted to be extremely hypertensive at this time. Related Data Home Medications Medication Instructions Recorded Confirmed atorvastatin 20 mg tablet 20 mg PO BEDTIME 09/21/21 07/18/23 buspirone 30 mg tablet 30 mg PO BID 09/21/21 07/18/23 duloxetine 30 mg capsule,delayed 30 mg PO BEDTIME 09/21/21 07/18/23 release (Cymbalta) duloxetine 60 mg capsule,delayed 60 mg PO DAILY@0730 09/21/21 07/18/23 release (Cymbalta) levothyroxine 50 mcg capsule 50 mcg PO DAILY 09/21/21 07/18/23 quetiapine 25 mg tablet (Seroquel) 25 mg PO BEDTIME 09/21/21 07/18/23 losartan 50 mg tablet 50 mg PO DAILY 07/18/23 psyllium husk 3.4 gram/5.4 gram 1 tbsp PO DAILY 07/18/23 oral powder (Metamucil) Previous Rx's Medication Instructions Recorded hydrocortisone acetate 25 mg 25 mg MA BID #24 ea 07/18/23 rectal suppository (Anucort-HC) menthol 0.44 %-zinc oxide 20.6 % 1 appl topical QID PRN Perianal 08/20/23 topical ointment (Calmoseptine) irritation #113 grams hydrocortisone acetate 25 mg 25 mg MA BID #12 supp 12/17/23 rectal suppository (Anucort-HC) Allergies Allergy/AdvReac Type Severity Reaction Status Date / Time Sulfa (Sulfonamide Allergy Unknown Verified 01/21/24 10:35 Antibiotics) sulfamethoxazole Allergy Unknown Verified 01/21/24 10:35 [From Bactrim] trimethoprim [From Bactrim] Allergy Unknown Verified 01/21/24 10:35 Codeine Allergy Unknown vomiting Uncoded 01/21/24 10:35 Demerol Allergy Unknown vomiting Uncoded 01/21/24 10:35 OPIATES Allergy Unknown Unknown Uncoded 01/21/24 10:35 percocet Allergy Unknown GI upset Uncoded 01/21/24 10:35 Review of Systems 2 Review of Systems: Yes Unobtainable due to mental condition PMFSH Past Medical History Source: nursing notes reviewed Medical History Uterine mass Mass of anus Internal and external hemorrhoids without complication Internal hemorrhoids with complication Poor historian Rectal bleeding HTN (hypertension) Hiatal hernia GERD (gastroesophageal reflux disease) Anxiety IBS (irritable bowel syndrome) History of electroconvulsive therapy Surgical History History of surgical procedure (~08/01/23) Hx of colonoscopy Hx of unilateral oophorectomy Hx of dilation and curettage Hx of hemorrhoidectomy Social History Social History Patient Tobacco Use Status: Former Tobacco user Quit Date: years ago Advance Directives: No Advance Directives Information Provided: No Physical Exam 2 Vital Signs: Vital Signs: Last Vital Signs Temp 97.8 F 02/16/24 13:18 Pulse 71 02/16/24 13:18 Resp 15 02/16/24 13:18 BP 213/101 H 02/16/24 13:18 Pulse Ox 98 02/16/24 13:18 O2 Del Method Room Air 02/16/24 13:18 BMI result Body Mass Index 35.4 VITAL SIGNS: Reviewed. GENERAL: Well developed, well nourished, in no acute distress. HEAD: Normocephalic/atraumatic EYES: PERRLA, EOMI EARS: Ext canals without abnormality NOSE: Nares patent bilateral OROPHARYNX: no oral lesions noted, posterior pharynx clear NECK: Supple, no adenopathy LUNGS: Normal breath sounds. No adventitious sounds or accessory muscle use. CARDIOVASCULAR: Regular rate and rhythm without noted murmurs, no JVD or lower extremity edema. ABDOMEN: Soft, non-tender, non-distended with bowel sounds. MUSCULOSKELETAL: No tenderness, deformities, or effusions noted on gross inspection. EXTREMITIES: No cyanosis, clubbing or edema. SKIN: Inspection of the skin reveals no rashes NEUROLOGIC: Alert and refer to NIH for score of 9 Medications Administered Discontinued Medications Generic Name Dose Route Start Last Admin Trade Name Ronnie PRN Reason Stop Dose Admin Ceftriaxone Sodium 1 gm/ 50 mls @ 100 mls/hr 02/16/24 11:26 02/16/24 12:03 Sodium Chloride IV 02/16/24 11:55 100 mls/hr ONCE ONE Administration Iohexol 70 ml 02/16/24 10:30 02/16/24 10:31 Iohexol 350 Mg/Ml 75 Ml Infus..Btl IV 02/16/24 10:31 70 ml ONCE ONE Administration Labetalol HCl 5 mg 02/16/24 10:25 02/16/24 10:54 Labetalol Hcl 100 Mg/20 Ml Vial IVPUSH 02/16/24 10:26 5 mg ONCE ONE Administration Medical Decision Making Medical Decision Making MDM Narrative: 78-year-old female with history and clinical presentation, DDX: Hemorrhagic stroke, hypertensive malignancy, ischemic stroke, infection, medication related 1026: [facility]- CT head without contrast negative for intracranial hemorrhage. 1050: I discussed the patient with daughter and who are currently at bedside. The daughter states that she got to the house shortly before 09:00 and noted that her mother was dressed, walking around but her underwear was on the floor and her jogging pants were twisted around her body. She also noticed that the medication organization was completely arbitrarily. Patient does have longstanding history of depression for which she takes medication, last appointment with psychiatrist was on Sunday. I discussed all results and findings thus far with the family at bedside. 1100: I discussed the patient with Neurology who agrees with stat MRI as patient's presentation may be a component aphasia. 1109: [facility] report on CT angio of head and neck negative for dissection/LVO 1127: Urinalysis positive for nitrites with 4+ bacteria, lactic acid/blood cultures/antibiotics have been ordered. Family at bedside was informed. I reviewed all investigations and hematologic indices are negative for leukocytosis/anemia/thrombocytopenia. Coagulation studies are not significantly deranged. Chemistry indices do not demonstrate an DASIA or electrolyte/liver enzymes derangements, I sensitivity troponin is noted to be detectable but not significantly elevated and there is no gross lactic acidosis. Urinalysis is significant for nitrites, patient given antibiotics and toxicology results are negative for UDS/ethanol/salicylate/acetaminophen and on review of EKG there are no derangements of QRS/QT/QTC. 1258: I discussed case with inpatient hospitalist who accepts admission. 1306: MRI was completed and Dr. Payan called to inform me that there is no evidence of acute infarct. Differential Diagnosis Differential Diagnoses: The differential diagnosis associated with the presentation includes Please see the discussion above Admission/Observation Consideration of admission/observation: Escalation of care including admission/observation considered Please see the discussion above Consult Healthcare Provider Management of the patient was discussed with: Hospitalist and Script Supervisor Please see the discussion above Lab Data MDM Lab Attestation statement: I reviewed the patient's lab results. Please see the discussion above 02/16/24 10:17 02/16/24 10:17 Labs: Lab Results 02/16/24 02/16/24 02/16/24 Range/Units 10:08 10:09 10:17 WBC 7.8 (4.8-10.8) X10*3/uL RBC 4.59 (4.20-5.50) X10*6/uL Hgb 14.2 (12.0-16.0) g/dl Hct 41.3 (37.0-47.0) % MCV 90.0 (80.0-98.0) fL MCH 30.9 (27.0-33.0) pg MCHC 34.4 (31.0-35.0) g/dl RDW 12.9 (11.0-16.0) % Plt Count 219 (160-400) X10*3/uL MPV 10.6 (9.4-12.3) fL Immature Gran % (Auto) 0.3 (0.0-0.4) % Neut % (Auto) 73.5 H (45-73) % Lymph % (Auto) 14.6 L (20-40) % [place] % (Auto) 8.9 (2-11) % Eos % (Auto) 1.9 (0-4) % Baso % (Auto) 0.8 (0-2) % Lymph # (Auto) 1.1 L (1.2-4.9) X10*3/uL [place] # (Auto) 0.7 (0.1-1.2) X10*3/uL Eos # (Auto) 0.2 (0.0-0.4) X10*3/uL Baso # (Auto) 0.1 (0.0-0.2) X10*3/uL Abs Immat Gran (auto) 0.02 (0.00-0.03) X10*3/uL Absolute Neuts (auto) 5.7 (2.0-8.3) x10*3/uL Absolute Nucleated RBC 0.000 (0.0-0.012) X10*3/uL Nucleated RBC % (auto) 0.0 (0.0-0.2) /100WBC PT 10.3 L (11.1-13.3) SEC Whole Blood PT 11.4 (11.1-13.5) sec INR 0.8 L (0.9-1.1) Whole Blood INR 1.0 (0.9-1.1) APTT 29.2 (26.0-36.8) SEC Sodium 142 (135-145) mmol/L Potassium 4.3 (3.3-5.1) mmol/L Chloride 106 (96-108) mmol/L Carbon Dioxide 25 (22-29) mmol/L Anion Gap 15 (12-20) BUN 14 (9-16) mg/dL Creatinine 0.74 (0.5-1.4) mg/dL Estim Creat Clear Calc 71.9 Estimated GFR > 60 POC Glucose 101 (60-115) mg/dL Random Glucose 105 (60-115) mg/dL Lactic Acid (0.5-2.0) mmol/L Calcium 9.9 (8.4-10.2) mg/dL Total Creatine Kinase 98 (26-140) U/L Troponin I High Sens 16.0 (<3.5-17.0) ng/L Urine Color Urine Appearance Urine pH (5.0-9.0) Ur Specific [place] (1.005-1.025) Urine Protein (Neg-Trace) mg/dL Urine Glucose (UA) (Negative) mg/dL Urine Ketones (Negative) mg/dL Urine Blood (Negative) Urine Nitrite (Negative) Ur Leukocyte Esterase (Negative) Urine RBC (0-2) /HPF Urine WBC (0-5) /HPF Ur Squamous Epith Cells (0-2) /HPF Urine Bacteria (None Seen) Hyaline Casts (0-2) /LPF Salicylates (15-30) mg/dL Urine Opiates Screen (Not Detect) Urine Fentanyl Screen (Not Detect) Acetaminophen (<30) mcg/mL Ur Barbiturates Screen (Not Detect) Ur Phencyclidine Scrn (Not Detect) Ur Amphetamines Screen (Not Detect) U Benzodiazepines Scrn (Not Detect) Urine Cocaine Screen (Not Detect) U Marijuana (THC) Screen (Not Detect) Ethyl Alcohol < 10 mg/dL 02/16/24 02/16/24 Range/Units 11:10 11:42 WBC (4.8-10.8) X10*3/uL RBC (4.20-5.50) X10*6/uL Hgb (12.0-16.0) g/dl Hct (37.0-47.0) % MCV (80.0-98.0) fL MCH (27.0-33.0) pg MCHC (31.0-35.0) g/dl RDW (11.0-16.0) % Plt Count (160-400) X10*3/uL MPV (9.4-12.3) fL Immature Gran % (Auto) (0.0-0.4) % Neut % (Auto) (45-73) % Lymph % (Auto) (20-40) % [place] % (Auto) (2-11) % Eos % (Auto) (0-4) % Baso % (Auto) (0-2) % Lymph # (Auto) (1.2-4.9) X10*3/uL [place] # (Auto) (0.1-1.2) X10*3/uL Eos # (Auto) (0.0-0.4) X10*3/uL Baso # (Auto) (0.0-0.2) X10*3/uL Abs Immat Gran (auto) (0.00-0.03) X10*3/uL Absolute Neuts (auto) (2.0-8.3) x10*3/uL Absolute Nucleated RBC (0.0-0.012) X10*3/uL Nucleated RBC % (auto) (0.0-0.2) /100WBC PT (11.1-13.3) SEC Whole Blood PT (11.1-13.5) sec INR (0.9-1.1) Whole Blood INR (0.9-1.1) APTT (26.0-36.8) SEC Sodium (135-145) mmol/L Potassium (3.3-5.1) mmol/L Chloride (96-108) mmol/L Carbon Dioxide (22-29) mmol/L Anion Gap (12-20) BUN (9-16) mg/dL Creatinine (0.5-1.4) mg/dL Estim Creat Clear Calc Estimated GFR POC Glucose (60-115) mg/dL Random Glucose (60-115) mg/dL Lactic Acid 1.4 (0.5-2.0) mmol/L Calcium (8.4-10.2) mg/dL Total Creatine Kinase (26-140) U/L Troponin I High Sens (<3.5-17.0) ng/L Urine Color Yellow Urine Appearance Clear Urine pH 7.0 (5.0-9.0) Ur Specific [place] 1.020 (1.005-1.025) Urine Protein Negative (Neg-Trace) mg/dL Urine Glucose (UA) Negative (Negative) mg/dL Urine Ketones Negative (Negative) mg/dL Urine Blood Negative (Negative) Urine Nitrite Positive H (Negative) Ur Leukocyte Esterase Negative (Negative) Urine RBC 0-2 (0-2) /HPF Urine WBC 0-5 (0-5) /HPF Ur Squamous Epith Cells 0-2 (0-2) /HPF Urine Bacteria 4+ (None Seen) Hyaline Casts 0-2 (0-2) /LPF Salicylates < 5.0 L (15-30) mg/dL Urine Opiates Screen Not Detected (Not Detect) Urine Fentanyl Screen Not Detected (Not Detect) Acetaminophen < 3 (<30) mcg/mL Ur Barbiturates Screen Not Detected (Not Detect) Ur Phencyclidine Scrn Not Detected (Not Detect) Ur Amphetamines Screen Not Detected (Not Detect) U Benzodiazepines Scrn Not Detected (Not Detect) Urine Cocaine Screen Not Detected (Not Detect) U Marijuana (THC) Screen Not Detected (Not Detect) Ethyl Alcohol mg/dL Independent Interpretation I performed an independent interpretation of an: EKG Interpretation: Normal/, HR-89, no STEMI, MA/QRS/QTC is within normal limits. Radiology Impression Discussion of test interpretation with radiology: I have reviewed the radiologist's reading. Radiologist Impression: Please see the discussion above Chronic Conditions Patient?s care impacted by: Hypertension and Other Depression NIH Stroke Scale Internal: Initial- Upon Arrival Level of Consciousness: Alert Level of Consciousness Questions: Answers one question correctly Level of Consciousness Commands: Performs one task correctly Best Gaze: Normal Visual: No visual loss Facial Palsy: Minor paralyis Motor Arm (Right): Some effort against gravity Motor Arm (Left): No drift Motor Leg (Right): Some effort against gravity Motor Leg (Left): No drift Limb Ataxia: Present in one limb Sensory: Normal Best Language: Mild to moderate aphasia Dysarthia: Normal Extinction and Inattention: No abnormality Score: 9 Critical Care Time Critical Care Time Critical Care Time: Yes Total Critical Care Time: 60 Attestation: I personally attest to this time spent taking care of the patient. Discharge Plan Discharge Clinical Impression: Malignant hypertension, Urinary tract infection, Altered mental status Patient Disposition: Admitted As Inpatient Prescriptions: No Action hydrocortisone acetate [Anucort-HC] 25 mg suppository 25 mg MA BID Qty: 12 5RF quetiapine [Seroquel] 25 mg Tablet 25 mg PO BEDTIME atorvastatin 20 mg Tablet 20 mg PO BEDTIME buspirone 30 mg Tablet 30 mg PO BID duloxetine [Cymbalta] 30 mg Capsule,Delayed Release(Dr/Ec) 30 mg PO BEDTIME duloxetine [Cymbalta] 60 mg Capsule,Delayed Release(Dr/Ec) 60 mg PO DAILY@0730 levothyroxine 50 mcg Capsule 50 mcg PO DAILY losartan 50 mg tablet 50 mg PO DAILY Metamucil 3.4 gram/5.4 gram powder 1 tbsp PO DAILY Rx Instructions: mix into at least 8 oz of water or juice before administering hydrocortisone acetate [Anucort-HC] 25 mg suppository 25 mg MA BID Qty: 24 0RF menthol-zinc oxide [Calmoseptine] 0.44-20.6 % ointment 1 appl topical QID PRN (Reason: Perianal irritation) Qty: 113 0RF
[2024-02-16 10:13] LABS: Prothrombin Time Whole Bld POC 11.4 sec (11.1-13.5)
[2024-02-16 10:13] LABS: Glucose, Whole Blood 101 mg/dL (60-115)
[2024-02-16 10:31] LABS: MANUAL DIFF FLAG NO
[2024-02-16] MEDS: iohexoL 350 MG/ML 75 ML INFUS..BTL 70 ML IV (10:31)
[2024-02-16 10:35] LABS: Basophils Absolute Auto 0.1 X10*3/uL (0.0-0.2); Basophils Percent Auto 0.8 % (0-2); Eosinophils Absolute Auto 0.2 X10*3/uL (0.0-0.4); Eosinophils Percent Auto 1.9 % (0-4); Hematocrit 41.3 % (37.0-47.0); Hemoglobin 14.2 g/dl (12.0-16.0); Imm Gran Abs Auto 0.02 X10*3/uL (0.00-0.03); Imm Gran Pct Auto 0.3 % (0.0-0.4); Lymphocytes Absolute Auto 1.1 X10*3/uL (1.2-4.9); Lymphocytes Percent Auto 14.6 % (20-40); Mean Corpuscular HGB Conc 34.4 g/dl (31.0-35.0); Mean Corpuscular Hemoglobin 30.9 pg (27.0-33.0); Mean Platelet Volume 10.6 fL (9.4-12.3); Monocytes Absolute Auto 0.7 X10*3/uL (0.1-1.2); Monocytes Percent Auto 8.9 % (2-11); Neutrophils Absolute Auto 5.7 x10*3/uL (2.0-8.3); Neutrophils Percent Auto 73.5 % (45-73); Platelet Count 219 X10*3/uL (160-400); Red Blood Count 4.59 X10*6/uL (4.20-5.50); Red Cell Distribution Width 12.9 % (11.0-16.0); White Blood Count 7.8 X10*3/uL (4.8-10.8)
[2024-02-16 10:50] LABS: INTERNATIONAL NORM RATIO 0.8 (0.9-1.1); Prothrombin Time 10.3 SEC (11.1-13.3)
[2024-02-16 10:51] LABS: Anion Gap 15 (12-20); Blood Urea Nitrogen 14 mg/dL (9-16); Calcium 9.9 mg/dL (8.4-10.2); Carbon Dioxide 25 mmol/L (22-29); Chloride 106 mmol/L (96-108); Creatinine Clr Calc Pharmacy 71.9; Estimated Glomerular Filt Rate > 60; Glucose Random 105 mg/dL (60-115); Potassium 4.3 mmol/L (3.3-5.1); Sodium 142 mmol/L (135-145)
[2024-02-16 10:52] LABS: Partial Thromboplastin Time 29.2 SEC (26.0-36.8)
[2024-02-16] MEDS: Labetalol HCL 100 MG/20 ML VIAL IVPUSH ×2 (10:54→13:33)
[2024-02-16 11:18] LABS: Appearance Urine Clear; Color Urine Yellow; Glucose Urine UA Negative (Negative); Leukocyte Esterase Urine Negative (Negative); Nitrite Urine Positive (Negative); UMIC TRIGGER UACC YES; Urine Blood Negative (Negative); Urine Ketones Negative (Negative); Urine Protein Negative (Neg-Trace)
[2024-02-16 11:23] LABS: Bacteria Urine 4+ (None Seen); Hyaline Casts Urine 0-2 /LPF (0-2); RBC Urine 0-2 /HPF (0-2); Squamous Epithelial Cell Urine 0-2 /HPF (0-2); UACC Culture Trigger YES; WBC Urine 0-5 /HPF (0-5)
[2024-02-16 11:43] LABS: Ethanol < 10 mg/dL
[2024-02-16 11:44] LABS: Amphetamine Screen Urine Not Detected (Not Detect); Barbiturates, Urine Not Detected (Not Detect); Benzodiazepines Screen Urine Not Detected (Not Detect); Cannabinoid Screen Urine Not Detected (Not Detect); Cocaine Screen Urine Not Detected (Not Detect); Fentanyl, urine Not Detected (Not Detect); Opiate Screen Urine Not Detected (Not Detect); Phencyclidine Screen Urine Not Detected (Not Detect)
[2024-02-16 11:52] LABS: Stroke Lab Use COMPLETE
[2024-02-16 12:00] LABS: Lactic Acid 1.4 mmol/L (0.5-2.0)
[2024-02-16] MEDS: cefTRIAXone sodium 1 GM in 0.9 % Sodium Chloride 50 ML IV (12:03)
--- NOTE | 2024-02-16 13:14 | PM.IMHP ---
History of Present Illness Date of Service: 02/16/24 Chief Complaint: Confusion A 78-year-old female with hypertension takes losartan, which was recently increased from 25 to 50 mg daily. She also has hypothyroidism and is on levothyroxine. Additionally, she takes seroquel and duloxetine for depression. She lives with her , who has dementia and requires care. Her daughter, who is at her bedside, arrived at the house this morning and found her to be very confused, unaware of her location, and wearing clothes inappropriately. She was brought to the emergency department (ED), where a stroke alert was invoked. A stat Head CT, head CT angiogram (CTA) of the head and neck showed no acute stroke. An MRI has been conducted, but the results are not yet available. It is notable that she has extremely high blood pressure, with a systolic blood pressure reaching 235. She is not reporting any headache, visual changes, or weakness in her limbs. A routine urinalysis showed positive nitrite and bacteria, and she has been prescribed ceftriaxone for a presumed urinary tract infection (UTI), although she is not reporting symptoms. Currently, she is oriented to self, place, and time. Intravenous medications are being administered to lower her blood pressure. Review of Systems Review of Systems: Gen: no fever Resp: no sob, no cough CV: no chest, no GARCÍA, no leg edema GI: No n/v, no abd pain Neuro: confusion has improved Yes all other systems are reviewed and are negative [facility] Medical History Uterine mass Mass of anus Internal and external hemorrhoids without complication Internal hemorrhoids with complication Poor historian Rectal bleeding HTN (hypertension) Hiatal hernia GERD (gastroesophageal reflux disease) Anxiety IBS (irritable bowel syndrome) History of electroconvulsive therapy Surgical History History of surgical procedure (~08/01/23) Hx of colonoscopy Hx of unilateral oophorectomy Hx of dilation and curettage Hx of hemorrhoidectomy Social History Household Members: Spouse Housing: House Do you presently have visiting nurse or other home services: No Patient Tobacco Use Status: Former Tobacco user Quit Date: years ago Use of substances other than those prescribed or required for medical reasons: No Currently Displaying Signs/Symptoms of Drug Intoxication Withdrawal: No Have you been hit, kicked, punched, or otherwise hurt by someone within the past year? If so, by whom?: No Do you feel safe in your current relationship?: Yes Is there a partner from a previous relationship who is making you feel unsafe now?: No Are you made to feel afraid or neglected: No Advance Directives: No Advance Directives Information Provided: No Do you have thoughts of harming others: None Do you have a plan to hurt others: No Plan Recently lost weight without trying: No Eating poorly because of decreased appetite: No Nutrition Risks: No Nutritional Risk Patient : No : No Poor oral hygiene: No service: No Meds Allergies Allergy/AdvReac Type Severity Reaction Status Date / Time Sulfa (Sulfonamide Allergy Unknown Verified 01/21/24 10:35 Antibiotics) sulfamethoxazole Allergy Unknown Verified 01/21/24 10:35 [From Bactrim] trimethoprim [From Bactrim] Allergy Unknown Verified 01/21/24 10:35 Codeine Allergy Unknown vomiting Uncoded 01/21/24 10:35 Demerol Allergy Unknown vomiting Uncoded 01/21/24 10:35 OPIATES Allergy Unknown Unknown Uncoded 01/21/24 10:35 percocet Allergy Unknown GI upset Uncoded 01/21/24 10:35 Home Medications Medication Instructions Recorded Confirmed Last Taken Type buspirone 30 mg tablet 30 mg PO BID@0800,1700 09/21/21 02/16/24 Unknown History duloxetine 30 mg capsule,delayed 30 mg PO DAILY@1700 09/21/21 02/16/24 Unknown History release (Cymbalta) duloxetine 60 mg capsule,delayed 60 mg PO DAILY@0800 09/21/21 02/16/24 Unknown History release (Cymbalta) quetiapine 25 mg tablet (Seroquel) 25 mg PO BEDTIME 09/21/21 02/16/24 Unknown History losartan 50 mg tablet 50 mg PO DAILY 07/18/23 02/16/24 Unknown History psyllium husk 3.4 gram/5.4 gram 3.4 g PO DAILY 07/18/23 02/16/24 Unknown History oral powder (Metamucil) atorvastatin 80 mg tablet 80 mg PO DAILY 02/16/24 02/16/24 Unknown History levothyroxine 75 mcg tablet 75 mcg PO DAILY 02/16/24 02/16/24 Unknown History Physical Exam Vital Signs and Narrative: Vital Signs: Last Vital Signs Temp 97.8 F 02/16/24 10:40 Pulse 73 02/16/24 11:51 Resp 14 02/16/24 11:51 BP 184/91 H 02/16/24 11:51 Pulse Ox 99 02/16/24 11:51 O2 Del Method Room Air 02/16/24 10:40 BMI result Body Mass Index 35.4 Constitutional: Alert, in no distress,. Mental Status: Oriented to person, place and time. Eyes: Pupils are equal, round and reactive to light. Ear, Nose and Throat: Oropharynx clear, mucous membranes moist. Ears and nose without deformities. Trachea midline. Respiratory: Clear to auscultation. No wheezing, rales or rhonchi. Cardiovascular: S1 S2 regular. No murmurs, rubs or gallops. Gastrointestinal: Abdomen soft, non-tender, non-distended. Normal bowel sounds.? Neurologic: Cranial nerves II-XII grossly intact. No focal neurological deficits. Moves all extremities spontaneously.? gait not tested but no issues reported Skin: No rashes or lesions.? Musculoskeletal: No cyanosis or clubbing. Psychiatric: Normal mood and affect? Results Labs 02/16/24 10:17 02/16/24 10:17 Labs: Laboratory Results - last 24 hr 02/16/24 02/16/24 02/16/24 10:08 10:09 10:17 MCV 90.0 MCH 30.9 MCHC 34.4 RDW 12.9 Plt Count 219 MPV 10.6 Immature Gran % (Auto) 0.3 Neut % (Auto) 73.5 H Lymph % (Auto) 14.6 L [place] % (Auto) 8.9 Eos % (Auto) 1.9 Baso % (Auto) 0.8 Lymph # (Auto) 1.1 L [place] # (Auto) 0.7 Eos # (Auto) 0.2 Baso # (Auto) 0.1 Abs Immat Gran (auto) 0.02 Absolute Neuts (auto) 5.7 Absolute Nucleated RBC 0.000 Nucleated RBC % (auto) 0.0 PT 10.3 L Whole Blood PT 11.4 INR 0.8 L Whole Blood INR 1.0 APTT 29.2 Anion Gap 15 Estim Creat Clear Calc 71.9 Estimated GFR > 60 POC Glucose 101 Random Glucose 105 Lactic Acid Calcium 9.9 Total Creatine Kinase 98 Troponin I High Sens 16.0 Urine Color Urine Appearance Urine pH Ur Specific [place] Urine Protein Urine Glucose (UA) Urine Ketones Urine Blood Urine Nitrite Ur Leukocyte Esterase Urine RBC Urine WBC Ur Squamous Epith Cells Urine Bacteria Hyaline Casts Urine Opiates Screen Urine Fentanyl Screen Ur Barbiturates Screen Ur Phencyclidine Scrn Ur Amphetamines Screen U Benzodiazepines Scrn Urine Cocaine Screen U Marijuana (THC) Screen Ethyl Alcohol < 10 02/16/24 02/16/24 11:10 11:42 MCV MCH MCHC RDW Plt Count MPV Immature Gran % (Auto) Neut % (Auto) Lymph % (Auto) [place] % (Auto) Eos % (Auto) Baso % (Auto) Lymph # (Auto) [place] # (Auto) Eos # (Auto) Baso # (Auto) Abs Immat Gran (auto) Absolute Neuts (auto) Absolute Nucleated RBC Nucleated RBC % (auto) PT Whole Blood PT INR Whole Blood INR APTT Anion Gap Estim Creat Clear Calc Estimated GFR POC Glucose Random Glucose Lactic Acid 1.4 Calcium Total Creatine Kinase Troponin I High Sens Urine Color Yellow Urine Appearance Clear Urine pH 7.0 Ur Specific [place] 1.020 Urine Protein Negative Urine Glucose (UA) Negative Urine Ketones Negative Urine Blood Negative Urine Nitrite Positive H Ur Leukocyte Esterase Negative Urine RBC 0-2 Urine WBC 0-5 Ur Squamous Epith Cells 0-2 Urine Bacteria 4+ Hyaline Casts 0-2 Urine Opiates Screen Not Detected Urine Fentanyl Screen Not Detected Ur Barbiturates Screen Not Detected Ur Phencyclidine Scrn Not Detected Ur Amphetamines Screen Not Detected U Benzodiazepines Scrn Not Detected Urine Cocaine Screen Not Detected U Marijuana (THC) Screen Not Detected Ethyl Alcohol Imaging Radiologist's Impressions: Impressions Head CT 02/16/24 10:15 IMPRESSION: No acute intracranial pathology. This critical result was relayed to Dr. Sierra by DWAYNE Walters at 10:26 AM. It was ascertained that the content and urgency of the report was understood at the time of direct communication. Head/Neck CTA 02/16/24 10:31 IMPRESSION: Beaded appearance of the upper cervical internal carotid arteries without significant stenosis or visible dissection. Findings can be seen in the setting of fibromuscular dysplasia. Approximate 60% stenosis at the origin of the right internal carotid artery due to moderate atherosclerotic wall calcifications. Severe stenosis at the origin of the left subclavian artery due to atheromatous disease and [id number] stenosis at the origin of the right subclavian artery with surrounding wall calcifications. Suspected focal fenestration in the upper cervical right vertebral artery at the C2 level. Approximate 3 x 3 mm PCOM aneurysm protruding posterolaterally off the supraclinoid left internal carotid artery. Imaging findings reported to ROJELIO Molina at 11:10 AM on 02/16/2024. Assessment and Plan (1) Malignant hypertension: Status: Acute (2) Urinary tract infection: Status: Acute (3) Hypertensive encephalopathy: Status: Acute Plan 72/F with HTN, hypothyroidism, depression here with confusion in setting of malignant hypertension, no acute stroke. She likely has HTN encephalopathy HTN encephalopathy--BP needs to be agresively lowered, initially with IV meds and to be started on oral meds and adjusted for safe SBP readings. I would continue Losartan at present dose of 50, and add Norvasc and nitro paste. If BP remains persistently high, she might need to go to ICU for intravenous drip. MRI result pending Levothyroxine--restart leveothyroxine once med rec completed UTI, Ceftriaxone in ED, continue and follow cultures Depression, resume home DVT prophylaxis Full code admission for at least 2 midnights for management of HTN encephalopathy that has required IV medication to lower BP and close moniotoring, with possible frequent neuro check Quality Stroke Does the patient have a stroke diagnosis?: No VTE Prior VTE?: No VTE Risk Level:: Medical - moderate - high VTE Device Contraindication: N/A - Device Ordered VTE Drug Contraindication: N/A - Med Ordered
--- NOTE | 2024-02-16 13:15 | PC.NURSE ---
patient back from MRI, patient is more alert and oriented, patient able to say her name and correctly, knows she is in the hospital but unsure of why, oatient knows who the president is and the season we are in. patient unable to tell what year we are in. patient still seams to have difficulty with word finding but it becoming quicker and more accurate with her speech and words VSS, BP elevated MD aware. skin dry and intact, call higginbotham within reach, family at bedside.
[2024-02-16 13:21] LABS: Acetaminophen LAB < 3 mcg/mL (<30); Salicylate < 5.0 mg/dL (15-30)
--- NOTE | 2024-02-16 13:43 | PHA.MEDREC ---
Pharmacy Consult ? Medication Reconciliation Pharmacy has completed the medication reconciliation. spoke with family member to confirm medications. family member reports that patient took her AM medications today.
[2024-02-16] MEDS: hydrALAZINE HCl 20 MG/ML VIAL 5 MG IVPUSH (14:24)
[2024-02-16] MEDS: amLODIPine Besylate 5 MG TABLET PO (15:57)
--- NOTE | 2024-02-16 16:02 | PC.NURSE ---
patient resting quietly in bed, on tele monitor, in normal sinus rhythm, patient is awake and alert, family states they feel she is more to her baseline. patient was 1 assist to the commode. VSS, providers aware of patient bp. patient medicated per jan.
[2024-02-16] MEDS: busPIRone HCl 10 MG TABLET 30 MG PO (18:39)
[2024-02-16] MEDS: DULoxetine HCl 30 MG CAPSULE.DR PO (18:40)
[2024-02-16] MEDS: QUEtiapine Fumarate 25 MG TABLET PO (23:19)
[2024-02-16] MEDS: Heparin Sodium,Porcine 5,000 UNIT/ML VIAL 5000 UNIT SUBCUT (23:19)
[2024-02-16] MEDS: 0.9 % Sodium Chloride Flush 3 ML SYRINGE IVFLUSH (23:22)
[2024-02-17 03:33] VITALS: BP 146/78; PULSE 80; RESP 18; TEMP 36.8
[2024-02-17 07:30] VITALS: BP 164/63; PULSE 79; RESP 17; TEMP 36.5; O2SAT 96
--- NOTE | 2024-02-17 08:04 | MHC.CM.PN ---
CM met with Patient at bedside and addressed IMM with her, providing Patient with the original and a copy has been placed on the chart. CM assisted Patient with the completion of a HCP; she named her Daughter/Yulisa as her Agent. Patient lives in a house with her , who has Dementia. Patient required no services nor DME [facility] but may benefit from a PT eval to assist with disposition. CM has initiated and will follow for dc planning. PCP is Dr. Nasim De Jesus.
[2024-02-17] MEDS: Losartan Potassium 50 MG TABLET PO (08:12)
[2024-02-17] MEDS: Heparin Sodium,Porcine 5,000 UNIT/ML VIAL 5000 UNIT SUBCUT (08:12)
[2024-02-17] MEDS: Atorvastatin Calcium 80 MG TABLET PO (08:12)
[2024-02-17] MEDS: busPIRone HCl 10 MG TABLET 30 MG PO (08:12)
[2024-02-17] MEDS: DULoxetine HCl 60 MG CAPSULE.DR PO (08:12)
[2024-02-17 08:13] VITALS: BP 164/63; PULSE 81
[2024-02-17] MEDS: Nitroglycerin 2 % Oint 1 GM Packet 1 INCH TRANSDERMA (08:13)
[2024-02-17] MEDS: Psyllium seed 3.7 GM PACKET PO (08:14)
[2024-02-17] MEDS: 0.9 % Sodium Chloride Flush 3 ML SYRINGE IVFLUSH ×2 (08:15→13:45)
[2024-02-17] MEDS: amLODIPine Besylate 5 MG TABLET PO (09:24)
[2024-02-17 11:15] VITALS: BP 137/63; PULSE 75; RESP 20; TEMP 36.4; O2SAT 97
--- NOTE | 2024-02-17 12:21 | P.CNNE_ITS ---
History of Present Illness Data of Consult Service Date: 02/17/24 Primary Care Provider: Nasim De Jesus MD HPI Reason for consult: Encephalopathy 78 years old woman with past medical history of hypertension was brought to hospital in confused state. Last known well was at least a night before. She was not a candidate for intravenous tPA for ischemic stroke type of symptoms but because of lack of clarity of exact diagnosis a stat MRI was done to rule out stroke, which did not reveal any acute stroke. She was initially not febrile but her blood pressure was quite high. UA suggested urinary tract infection and she was admitted. There was no previous history of similar episode or seizure disorder. When I saw her today, she was eating her lunch with no sign of confusion and was wondering why she was here and what had happened. She wanted to go home. There was no sign of distress. Review of Systems 2 Review of Systems: No recent cold or flu-like illness PMFSH Past Medical History Medical History Uterine mass Mass of anus Internal and external hemorrhoids without complication Internal hemorrhoids with complication Poor historian Rectal bleeding HTN (hypertension) Hiatal hernia GERD (gastroesophageal reflux disease) Anxiety IBS (irritable bowel syndrome) History of electroconvulsive therapy Surgical History Surgical History History of surgical procedure (~08/01/23) Hx of colonoscopy Hx of unilateral oophorectomy Hx of dilation and curettage Hx of hemorrhoidectomy Social History Social History Household Members: Spouse Housing: House Do you presently have visiting nurse or other home services: No Patient Tobacco Use Status: Former Tobacco user Quit Date: years ago Use of substances other than those prescribed or required for medical reasons: No Currently Displaying Signs/Symptoms of Drug Intoxication Withdrawal: No Have you been hit, kicked, punched, or otherwise hurt by someone within the past year? If so, by whom?: No Do you feel safe in your current relationship?: Yes Is there a partner from a previous relationship who is making you feel unsafe now?: No Are you made to feel afraid or neglected: No Advance Directives: No Advance Directives Information Provided: No Do you have thoughts of harming others: None Do you have a plan to hurt others: No Plan Recently lost weight without trying: No Eating poorly because of decreased appetite: No Nutrition Risks: No Nutritional Risk Patient : No : No Poor oral hygiene: No service: No Meds Allergies Allergy/AdvReac Type Severity Reaction Status Date / Time Sulfa (Sulfonamide Allergy Unknown Verified 01/21/24 10:35 Antibiotics) sulfamethoxazole Allergy Unknown Verified 01/21/24 10:35 [From Bactrim] trimethoprim [From Bactrim] Allergy Unknown Verified 01/21/24 10:35 Codeine Allergy Unknown vomiting Uncoded 01/21/24 10:35 Demerol Allergy Unknown vomiting Uncoded 01/21/24 10:35 OPIATES Allergy Unknown Unknown Uncoded 01/21/24 10:35 percocet Allergy Unknown GI upset Uncoded 01/21/24 10:35 Active Medications: Current Medications Acetaminophen (Acetaminophen 325 Mg Tablet) 650 mg PO Q6H PRN PRN Reason: Pain, Mild (Pain Scale 1-3) Amlodipine Besylate (Amlodipine Besylate 5 Mg Tablet) 5 mg PO DAILY [facility]; Protocol Last Admin: 02/17/24 09:24 Dose: 5 mg Atorvastatin Calcium (Atorvastatin Calcium 80 Mg Tablet) 80 mg PO DAILY [facility] Last Admin: 02/17/24 08:12 Dose: 80 mg Buspirone HCl (Buspirone Hcl 10 Mg Tablet) 30 mg PO BID@0800,1700 [facility] Last Admin: 02/17/24 08:12 Dose: 30 mg Duloxetine HCl (Duloxetine Hcl 30 Mg Capsule.) 30 mg PO DAILY@1700 [facility] Last Admin: 02/16/24 18:40 Dose: 30 mg Duloxetine HCl (Duloxetine Hcl 60 Mg Capsule.) 60 mg PO DAILY@0800 [facility] Last Admin: 02/17/24 08:12 Dose: 60 mg Heparin Sodium (Porcine) (Heparin Sodium,Porcine 5,000 Unit/Ml Vial) 5,000 unit SUBCUT BID [facility] Last Admin: 02/17/24 08:12 Dose: 5,000 unit Levothyroxine Sodium (Levothyroxine Sodium 75 Mcg Tablet) 75 mcg PO DAILY@0600 [facility] Last Admin: 02/17/24 06:45 Dose: Not Given Losartan Potassium (Losartan Potassium 50 Mg Tablet) 50 mg PO DAILY [facility]; Protocol Last Admin: 02/17/24 08:12 Dose: 50 mg Ondansetron HCl (Ondansetron Hcl 4 Mg/2 Ml Vial) 4 mg IVPUSH Q8H PRN PRN Reason: Nausea and Vomiting Psyllium Hydrophilic Mucilloid (Psyllium Seed 3.7 Gm Packet) 3.7 gm PO DAILY [facility] Last Admin: 02/17/24 08:14 Dose: 3.7 gm Quetiapine Fumarate (Quetiapine Fumarate 25 Mg Tablet) 25 mg PO BEDTIME [facility] Last Admin: 02/16/24 23:19 Dose: 25 mg Sodium Chloride (0.9 % Sodium Chloride Flush 3 Ml Syringe) 3 ml IVFLUSH QSHIFT [facility] Last Admin: 02/17/24 08:15 Dose: 3 ml Home Medications Medication Instructions Recorded Confirmed Last Taken Type buspirone 30 mg tablet 30 mg PO BID@0800,1700 09/21/21 02/16/24 Unknown History duloxetine 30 mg capsule,delayed 30 mg PO DAILY@1700 09/21/21 02/16/24 Unknown History release (Cymbalta) duloxetine 60 mg capsule,delayed 60 mg PO DAILY@0800 09/21/21 02/16/24 Unknown History release (Cymbalta) quetiapine 25 mg tablet (Seroquel) 25 mg PO BEDTIME 09/21/21 02/16/24 Unknown History losartan 50 mg tablet 50 mg PO DAILY 07/18/23 02/16/24 Unknown History psyllium husk 3.4 gram/5.4 gram 3.4 g PO DAILY 07/18/23 02/16/24 Unknown History oral powder (Metamucil) atorvastatin 80 mg tablet 80 mg PO DAILY 02/16/24 02/16/24 Unknown History levothyroxine 75 mcg tablet 75 mcg PO DAILY 02/16/24 02/16/24 Unknown History Physical Exam 2 Vital Signs: Vital Signs: Last Vital Signs Temp 97.5 F 02/17/24 11:15 Pulse 75 02/17/24 11:15 Resp 20 02/17/24 11:15 BP 137/63 02/17/24 11:15 Pulse Ox 97 02/17/24 11:15 O2 Del Method Room Air 02/17/24 11:15 O2 Flow Rate 98 02/17/24 03:33 BMI result Body Mass Index 35.4 Neuro: Other: She is alert and awake with normal spontaneity of speech fluency comprehension and affect. Face is symmetrical. Visual wing are full. [id number] testing is normal. There is no focal weakness. Speech is normal. Results Labs 02/16/24 10:17 02/16/24 10:17 Labs: Noncontrast head CT and MRI of brain did not reveal any significant acute abnormality. Microvascular ischemic changes were noted including in brainstem. Tox screen did not reveal any positive finding. Alcohol level was not hyper Microbiology Microbiology Results: Microbiology 02/16/24 11:42 Urine Catheterized - Straight Catheter Urine Culture - Preliminary Gram negative zeinab Assessment and Plan (1) Altered mental status: Qualifiers: Altered mental status type: transient alteration of awareness Qualified Code(s): R40.4 - Transient alteration of awareness Status: Acute 78 years old woman who was brought to hospital in confused state. She had no recollection of what had happened. Initial presentation was suggestive of delirium versus aphasia but workup for any vascular cause of aphasia was negative. Her blood pressure was high in UA was suggestive of urinary tract infection suggesting that multifactorial encephalopathy might be at play. At the same time, there is possibility of seizure disorder and my recommendation is to obtain an outpatient EEG. As far as vascular disease is concerned, continue anti-platelet agent, blood pressure control and statin. Procedures Date of Service Date of Service: 02/17/24
--- NOTE | 2024-02-17 13:27 | HO.PM.IMPN ---
Subjective Subjective Date of Service: 02/17/24 Interval History: f/u on confusion, ecephalopathy and accelerated HTN that required IV meds yesterday, blood pressure has significantly improve Confusion has resolved. Physical Exam Vital Signs: Vital Signs: Last Vital Signs Temp 97.5 F 02/17/24 11:15 Pulse 75 02/17/24 11:15 Resp 20 02/17/24 11:15 BP 137/63 02/17/24 11:15 Pulse Ox 97 02/17/24 11:15 O2 Del Method Room Air 02/17/24 11:15 O2 Flow Rate 98 02/17/24 03:33 BMI result Body Mass Index 35.4 General: AO X 3, no acute distress Resp: CTA bilateral CVS: S1,S2,RRR GI: +BS, NT, no distention Skin: No rash Neuro: motor grossly intact Psych: appropriate affect Objective Data Active Medications Acetaminophen (Acetaminophen 325 Mg Tablet) 650 mg PO Q6H PRN PRN Reason: Pain, Mild (Pain Scale 1-3) Amlodipine Besylate (Amlodipine Besylate 5 Mg Tablet) 5 mg PO DAILY [facility]; Protocol Last Admin: 02/17/24 09:24 Dose: 5 mg Documented By: KAYODE Atorvastatin Calcium (Atorvastatin Calcium 80 Mg Tablet) 80 mg PO DAILY [facility] Last Admin: 02/17/24 08:12 Dose: 80 mg Documented By: KAYODE Buspirone HCl (Buspirone Hcl 10 Mg Tablet) 30 mg PO BID@0800,1700 [facility] Last Admin: 02/17/24 08:12 Dose: 30 mg Documented By: KAYODE Duloxetine HCl (Duloxetine Hcl 30 Mg Capsule.) 30 mg PO DAILY@1700 [facility] Last Admin: 02/16/24 18:40 Dose: 30 mg Documented By: VON Duloxetine HCl (Duloxetine Hcl 60 Mg Capsule.) 60 mg PO DAILY@0800 [facility] Last Admin: 02/17/24 08:12 Dose: 60 mg Documented By: KAYODE Heparin Sodium (Porcine) (Heparin Sodium,Porcine 5,000 Unit/Ml Vial) 5,000 unit SUBCUT BID [facility] Last Admin: 02/17/24 08:12 Dose: 5,000 unit Documented By: KAYODE Ceftriaxone Sodium 1 gm/ (Sodium Chloride) 50 mls @ 100 mls/hr IV Q24H [facility] Levothyroxine Sodium (Levothyroxine Sodium 75 Mcg Tablet) 75 mcg PO DAILY@0600 [facility] Last Admin: 02/17/24 06:45 Dose: Not Given Documented By: JEREMIAH Non-Admin Reason: Patient Refused Losartan Potassium (Losartan Potassium 50 Mg Tablet) 50 mg PO DAILY [facility]; Protocol Last Admin: 02/17/24 08:12 Dose: 50 mg Documented By: KAYODE Ondansetron HCl (Ondansetron Hcl 4 Mg/2 Ml Vial) 4 mg IVPUSH Q8H PRN PRN Reason: Nausea and Vomiting Psyllium Hydrophilic Mucilloid (Psyllium Seed 3.7 Gm Packet) 3.7 gm PO DAILY [facility] Last Admin: 02/17/24 08:14 Dose: 3.7 gm Documented By: KAYODE Quetiapine Fumarate (Quetiapine Fumarate 25 Mg Tablet) 25 mg PO BEDTIME [facility] Last Admin: 02/16/24 23:19 Dose: 25 mg Documented By: JEREMIAH Sodium Chloride (0.9 % Sodium Chloride Flush 3 Ml Syringe) 3 ml IVFLUSH QSHIFT [facility] Last Admin: 02/17/24 08:15 Dose: 3 ml Documented By: KAYODE Labs 02/16/24 10:17 02/16/24 10:17 Microbiology Microbiology Results: Microbiology 02/16/24 11:42 Urine Culture - Preliminary Urine Catheterized - Straight Catheter Gram negative zeinab Assessment and Plan (1) Hypertensive encephalopathy: Status: Acute (2) Altered mental status: Status: Acute (3) Urinary tract infection: Status: Acute Plan 72/F with HTN, hypothyroidism, depression here with confusion in setting of malignant hypertension, no acute stroke. She likely has HTN encephalopathy Encephalopathy--likely d/t combination to malignant HTN and UTI, resolved and now lucid. Neuro recommends outpatient EEG Malignant HTN--Blood pressure is much better, following IV meds yesterday and starting Norvasc, continue present meds with Losart and Norvasc Vascular disease as demonstrated on MRI--Neurology recommens ASA, BP control Levothyroxine--restart leveothyroxine once med rec completed UTI, Ceftriaxone in ED, Culture show gram negaive, continue Ceftriaxone and follow sensitiviyt Depression, resume home DVT prophylaxis Full code admission for at least 2 midnights for management of HTN encephalopathy that has required IV medication to lower BP and close moniotoring, with possible frequent neuro check Quality Stroke Does the patient have a stroke diagnosis?: No VTE Prior VTE?: No VTE Risk Level:: Medical - moderate - high VTE Device Contraindication: N/A - Device Ordered VTE Drug Contraindication: N/A - Med Ordered
[2024-02-17] MEDS: cefTRIAXone sodium 1 GM in 0.9 % Sodium Chloride 50 ML IV (13:44)
--- NOTE | 2024-02-17 13:59 | P.DS_ITS ---
DS: Providers Provider Date of Service: 02/17/24 Date of admission: 02/16/24 14:55 Primary care physician: Nasim De Jesus MD Consults: 02/17/24 09:26 Consult to Neurology Routine Consulting Provider: [facility] Reason for consultation: Hypertensive encephalopath Has provider been notified: No DS: Diagnosis Discharge Diagnosis (1) Hypertensive encephalopathy: Status: Acute (2) Altered mental status: Status: Acute (3) Urinary tract infection: Status: Acute DS: Summary Hospital Course Hospital Course: Chief Complaint: Confusion A 78-year-old female with hypertension takes losartan, which was recently increased from 25 to 50 mg daily. She also has hypothyroidism and is on levothyroxine. Additionally, she takes seroquel and duloxetine for depression. She lives with her , who has dementia and requires care. Her daughter, who is at her bedside, arrived at the house this morning and found her to be very confused, unaware of her location, and wearing clothes inappropriately. She was brought to the emergency department (ED), where a stroke alert was invoked. A stat Head CT, head CT angiogram (CTA) of the head and neck showed no acute stroke. An MRI has been conducted, but the results are not yet available. It is notable that she has extremely high blood pressure, with a systolic blood pressure reaching 235. She is not reporting any headache, visual changes, or weakness in her limbs. A routine urinalysis showed positive nitrite and bacteria, and she has been prescribed ceftriaxone for a presumed urinary tract infection (UTI), although she is not reporting symptoms. Currently, she is oriented to self, place, and time. Intravenous medications are being administered to lower her blood pressure. Hospital course: She presented with acute confusion, initially concerning for stroke. However, stroke workup with CT, CTA of the head and neck, and MRI of the head yielded negative results. She was noted to have malignant hypertension and required IV medication to lower her blood pressure. Further testing revealed an acute UTI, which was treated with IV Ceftriaxone. Over the course of hospitalization, her blood pressure gradually decreased. After receiving 2 doses of 5 mg IV labetalol, 1 dose of 5 mg IV hydralazine, and oral Norvasc 5 mg, her blood pressure measured 137/63, and her confusion has resolved. MRI and CT scans of the brain showed evidence of vascular disease. She was evaluated by Neurologist Dr. Payan, who recommended Aspirin and blood pressure control. Additionally, Dr. Payan recommended outpatient EEG to rule out seizures. As for the UTI, culture is growing gram-negative rods with no sensitivity yet. She is very anxious and wishes to go home today. I have explained that if culture sensitivity shows that the present antibiotics, ceftriaxone or cefuroxime, for discharge do not cover her, she may need a different type of antibiotics. She and her daughter agree. Therefore, she will be discharged with cefuroxime for an additional five days, for a total of 7 days of antibiotics. Final diagnoses: Hypertensive encephalopathy UTI Uncontrolled HTN Time Attestation Discharge Coordination Time (in mins): 35 Quality: Safe Use of Opioids Does Pt have an Active Cancer Diagnosis on the Problem List?: No Quality: Stroke Does the patient have a stroke diagnosis?: No Physical Exam Vital Signs: Vital Signs: Last Vital Signs Temp 97.5 F 02/17/24 11:15 Pulse 75 02/17/24 11:15 Resp 20 02/17/24 11:15 BP 137/63 02/17/24 11:15 Pulse Ox 97 02/17/24 11:15 O2 Del Method Room Air 02/17/24 11:15 O2 Flow Rate 98 02/17/24 03:33 BMI result Body Mass Index 35.4 General: AO X 3, no acute distress Resp: CTA bilateral CVS: S1,S2,RRR GI: +BS, NT, no distention Skin: No rash Neuro: motor grossly intact Psych: appropriate affect DS: Data Data Completed and Pending Labs on day of discharge: Preliminary micro results at discharge 02/16/24 11:41 Blood Culture - Preliminary Blood - Venous No growth after 24 hours. 02/16/24 11:41 Blood Culture - Preliminary Blood - Venous No growth after 24 hours. 02/16/24 11:42 Urine Culture - Preliminary Urine Catheterized - Straight Catheter Gram negative zeinab Discharge Plan Discharge Anticipated Discharge Date/Time: 02/17/24 13:45 Patient Disposition: Home, Self-Care Discharge Diagnosis: encephalopathy due to hypertension encephalopathy and the urinary tract infection. Referrals: Nasim De Jesus MD [Primary Care Provider] - 1 Week Discharge Medications: New amlodipine 5 mg Tablet 5 mg PO DAILY Qty: 90 0RF Protocol: Hold for SBP< HOLD for SBP < : 90 cefuroxime axetil 250 mg tablet 250 mg PO BID Qty: 10 0RF Rx Instructions: next dose 02/18/24 morning aspirin 81 mg Tablet,Chewable 81 mg PO DAILY Qty: 90 0RF Rx Instructions: May take over the counter baby aspirin 1 daily Continued quetiapine [Seroquel] 25 mg Tablet 25 mg PO BEDTIME buspirone 30 mg Tablet 30 mg PO BID@0800,1700 duloxetine [Cymbalta] 30 mg Capsule,Delayed Release(Dr/Ec) 30 mg PO DAILY@1700 duloxetine [Cymbalta] 60 mg Capsule,Delayed Release(Dr/Ec) 60 mg PO DAILY@0800 atorvastatin 80 mg tablet 80 mg PO DAILY levothyroxine 75 mcg tablet 75 mcg PO DAILY losartan 50 mg tablet 50 mg PO DAILY Metamucil 3.4 gram/5.4 gram powder 3.4 g PO DAILY Rx Instructions: mix into at least 8 oz of water or juice before administering Discharge Orders: Discharge Order (Routine); Ordered 02/17/24 Ordered By: Naveed Frost Diet: Advance to usual diet Activity on Discharge: As tolerated Stand Alone Forms: Patient Portal Discharge page Other Ambulatory Orders: EEG ambulatory (Routine) Timeframe: 1 Week Facility: [facility] - Location: Radiology Ordered By: Naveed Frost Care Plan Goals: Covering from encephalopathy UTI and elevated blood pressure. Health Concerns: Uncontrolled high blood pressure urinary tract infection encephalopathy vascular disease of the brain Plan of Treatment: take Norvasc in addition to losartan to control your blood pressure. Follow-up with your doctor within a week to have your blood pressure recheck and medication adjusted as needed. Check your blood pressure at home daily and record the numbers if your blood pressure is consistently above 180 the top number at the bottom number consistently above 110 and especially with symptoms such as headache nausea vomiting shortness of breath call 911 and if no symptoms call your doctor. Take cefuroxime to treat urinary tract infection take baby aspirin 1 daily to prevent vascular disease You are to have an EEG done at a later time to rule out seizure, as recommended by the Neurologist. Follow up with your Doctor in a week, call for an appointment Assessment: see above
--- NOTE | 2024-02-17 13:59 | MHC.CM.PN ---
Patient has been medically cleared for dc to home today, self care.
== END 2024-02-17 14:45 | disposition home or self-care (01) | DRG 78 ==
LOC: HO.ED 13:34 → HO.EDOVER 15:05 → HO.IMC 19:17
PROVIDERS: Admitting Provider Internal Medicine; Emergency Provider Student in an Organized Health Care Education/Training Program; PCP Internal Medicine; Visit Provider Internal Medicine
DX: I67.4 Hypertensive encephalopathy (principal); N39.0 Urinary tract infection, site not specified; E03.9 Hypothyroidism, unspecified; I10 Essential (primary) hypertension; F32.A Depression, unspecified; Z79.82 Long term (current) use of aspirin; Z79.890 Hormone replacement therapy; Z79.899 Other long term (current) drug therapy
CPT/HCPCS: 36415; 70450; 70496; 70498; 70551; 80048; 80143; 80179; 80307; 81001; 82550; 82947; 83605; 84484; 85025; 85610; 85730; 87040; 87086; 87088; 87186; 93005; 99285; J0360; J0696; J1644; J1920; Q9967

== ENCOUNTER → 2024-02-16 10:07 | Outpatient (BNV) | payer MEDICARE, SELFPAY | PROVIDERS: Admitting Provider Internal Medicine; Emergency Provider Student in an Organized Health Care Education/Training Program; PCP Internal Medicine; Visit Provider Internal Medicine Cardiovascular Disease | DX: I63.9 Cerebral infarction, unspecified (principal) | CPT/HCPCS: 93010 ==

== ENCOUNTER → 2024-02-16 14:55 | Outpatient (BNV) | payer MEDICARE, SELFPAY | PROVIDERS: Admitting Provider Internal Medicine; Emergency Provider Student in an Organized Health Care Education/Training Program; PCP Internal Medicine; Visit Provider Psychiatry & Neurology Neurology | DX: R40.4 Transient alteration of awareness (principal) | CPT/HCPCS: 99222 ==

== ENCOUNTER → 2024-02-16 14:55 | Outpatient (BNV) | payer MEDICARE, SELFPAY | PROVIDERS: Admitting Provider Internal Medicine; Emergency Provider Student in an Organized Health Care Education/Training Program; PCP Internal Medicine; Visit Provider Internal Medicine | DX: I10 Essential (primary) hypertension (principal); N39.0 Urinary tract infection, site not specified; I67.4 Hypertensive encephalopathy; R40.4 Transient alteration of awareness | CPT/HCPCS: 99223; 99239 ==

== ENCOUNTER 2024-02-29 11:05 | Outpatient (REF) | payer MEDICARE, SELFPAY ==
--- NOTE | ~2024-02-29 | MR_ITS ---
EXAMINATION: MR PELVIS WITHOUT AND WITH CONTRAST CLINICAL INFORMATION: Exophytic left lateral uterine mass lesion COMPARISON: CT scan of pelvis on 10/25/2023 TECHNIQUE: Examination was performed in a high field strength MRI scanner. Pre-contrast multiplanar multisequence MR imaging of the pelvis was performed without IV contrast enhancement. Post-contrast coronal, axial and sagittal T1 weighted fat suppressed images of the pelvis were obtained after IV injection of 7.5 mL Gadavist. FINDINGS: Uterus is retroverted, containing several T2 hypointense myometrial mass lesions. The largest tumor is found protruding from left lateral uterine body, measuring 4.1 cm in AP diameter, 3.8 cm in width, 3.8 cm in vertical height. Endometrial stripe could not be identified. No adnexal mass lesion could be identified. Urinary bladder is well filled with urine. Pelvic fat plane is clean. No pelvic ascites is seen. No abnormally enlarged iliac or inguinal lymph nodes are found. The pelvis and bilateral hips are intact. The right femoral head shows heterogeneous subcortical T2 hyperintense lesions and superior medial suspicious subchondral fracture. The left femoral head and neck show normal signal without focal lesion. No abnormal joint effusion can be seen. The visualized bony pelvis show normal signal. Bilateral sacroiliac joints also appear unremarkable. MR/MR pelvis wo/w con IMPRESSION: 1. Multiple uterine fibroids with the largest exophytic tumor seen projecting from the left lateral uterine body. 2. 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
[2024-02-29] MEDS: gadobutroL 7.5 ML VIAL IVPUSH (12:00)
== END 2024-02-29 11:06 | disposition home or self-care (01) ==
LOC: HO.MRI 11:05
PROVIDERS: PCP Internal Medicine; Visit Provider Obstetrics & Gynecology
DX: N85.8 Other specified noninflammatory disorders of uterus (principal)
CPT/HCPCS: 72197; A9585

== ENCOUNTER 2024-03-18 16:00 | Outpatient (AMB) | payer MEDICARE, SELFPAY ==
[2024-03-18 16:03] VITALS: BP 130/70; BMI 29.2
--- NOTE | 2024-03-18 16:03 | MHC.OFFVIS ---
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 Information Interpreted: non-clinical & clinical Accompanied by: Daughter Allergies Sulfa (Sulfonamide Antibiotics) Allergy (Verified 03/18/24 16:04) Unknown sulfamethoxazole [From Bactrim] Allergy (Verified 03/18/24 16:04) Unknown trimethoprim [From Bactrim] Allergy (Verified 03/18/24 16:04) Unknown Codeine Allergy (Unknown, Uncoded 03/18/24 16:04) vomiting Demerol Allergy (Unknown, Uncoded 03/18/24 16:04) vomiting OPIATES Allergy (Unknown, Uncoded 03/18/24 16:04) Unknown percocet Allergy (Unknown, Uncoded 03/18/24 16:04) GI upset Post menopausal: Yes HPI Comments Details: Presenting for pelvic MRI follow-up. The patient was referred from Dr. Mayo in 02/10/24 . The patient has been complaining over the last 6 months of rectal pressure, no vaginal bleeding, no pelvic pressure or any other concerns. Review of the patient's record showed the following relevant imaging findings : 11/19 Pelvic ultrasound showed a myoma measuring 5.3 x 5.1 x 4.5 cm 11/19 Pelvic MRI in 11/19 showed a uterine myoma measuring 5.1 x 5.3 x 4.5 cm 11/21 Pelvic ultrasound showed a uterine myoma measuring 7.3 x 6.7 x 5.1 11/10 CT scan, pelvic portion showed the following: GENITAL ORGANS: No adnexal mass lesion could be seen. The uterus is retroverted, containing at least one enhancing exophytic mass lesion protruding from left lateral uterine body, measuring 5.1 cm in AP diameter, 4.3 cm in width, 4.0 cm in vertical height. 03/11/2024 pelvic MRI showed the following: Uterus is retroverted, containing several T2 hypointense myometrial mass lesions. The largest tumor is found protruding from left lateral uterine body, measuring 4.1 cm in AP diameter, 3.8 cm in width, 3.8 cm in vertical height. Endometrial stripe could not be identified. No adnexal mass lesion could be identified. Urinary bladder is well filled with urine. Pelvic fat plane is clean. No pelvic ascites is seen. No abnormally enlarged iliac or inguinal lymph nodes are found. The pelvis and bilateral hips are intact. The right femoral head shows heterogeneous subcortical T2 hyperintense lesions and superior medial suspicious subchondral fracture. The left femoral head and neck show normal signal without focal lesion. No abnormal joint effusion can be seen. The visualized bony pelvis show normal signal. Bilateral sacroiliac joints also appear unremarkable. PFSH Medical History Uterine mass Mass of anus Internal and external hemorrhoids without complication Internal hemorrhoids with complication Poor historian Rectal bleeding HTN (hypertension) Hiatal hernia GERD (gastroesophageal reflux disease) Anxiety IBS (irritable bowel syndrome) History of electroconvulsive therapy Surgical History History of surgical procedure (~08/01/23) Hx of colonoscopy Hx of unilateral oophorectomy Hx of dilation and curettage Hx of hemorrhoidectomy Social History Household Members: Spouse Housing: House Do you presently have visiting nurse or other home services: No Patient Tobacco Use Status: Former Tobacco user Quit Date: years ago service: No Review of Systems Const All systems reviewed & are unremarkable except as noted in HPI and below Reports as per HPI and Reports no additional complaints GI Reports no additional complaints Reports no additional complaints Physical Exam Vital Signs: Last Vital Signs BP 130/70 03/18/24 16:03 BMI result Body Mass Index 29.2 Assessment & Plan Assessment & Plan (1) Uterine myoma: Code(s): D25.9 - Leiomyoma of uterus, unspecified Category: Medical Plan: Discussed with the patient the findings on pelvic MRI and compared to CT scan done in 11/10 and previous imaging in an 0 3 & the risk of myosarcoma; discussed with the patient the options of treatment including expectant management versus hysterectomy; the pros and cons, risks benefits of each approach were discussed with the patient including the fact that in cases of myosarcoma, surgical treatment can lead to early diagnosis and positively affects the prognosis; after further discussion, the patient decided to proceed with expectant management. Will repeat pelvic ultrasound periodically. Instructions given to patient to call in case any of the following occurs: pressure symptoms, abnormal uterine bleeding, pelvic pain; and to schedule a pelvic ultrasound and a six-month ultrasound follow-up appointment for reassessment and to order a repeat ultrasound . All questions answered, the patient verbalized understanding and agreed with the plan . 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 All questions answered, the patient verbalized understanding Orders: Orders US pelvic and transvaginal Today D25.9 - Leiomyoma of uterus, unspecified Coding Level of Care Code Est Pt Level 3 (81079) Diagnoses Uterine myoma D25.9 Femoral abnormality Q74.2
== END 2024-03-18 16:15 ==
LOC: HO.HWS 16:00
PROVIDERS: PCP Internal Medicine; Visit Provider Obstetrics & Gynecology
DX: D25.9 Leiomyoma of uterus, unspecified (principal); Q74.2 Other congenital malformations of lower limb(s), including pelvic girdle
CPT/HCPCS: 99213

== ENCOUNTER → 2024-03-18 16:00 | Outpatient (BNVA) | payer MEDICARE, SELFPAY | PROVIDERS: PCP Internal Medicine; Visit Provider Obstetrics & Gynecology | DX: D25.9 Leiomyoma of uterus, unspecified (principal); Q74.2 Other congenital malformations of lower limb(s), including pelvic girdle | CPT/HCPCS: 99212 ==